=== PATIENT | male | born 1940 | race Caucasian/White ===

== ENCOUNTER 2019-02-03 10:51 | Outpatient (CLI) | payer MEDICARE ==
--- NOTE | 2019-02-03 11:33 | RAD ---
3 views lumbar spine: 02/03/2019 COMPARISON: None HISTORY: Right hip pain, hematuria FINDINGS: Multiple large calcifications within the pelvis noted, consistent with numerous large bladd er stones. These calcifications measure up to at least 6 cm. There are extensive atherosclerotic calcifications of the abdominal aorta and its branches. There is multilevel disc space narrowing, degenerative endplate change, and anterior osteophyte forma tion within the lower thoracic spine and throughout the lumbar spine. There is a vacuum disc present at L3-4. Extensive multilevel lower lumbar spine facet hypertrophic change. No acute osseous abnormality noted. IMPRESSION: Extensive atherosclerotic calcification. Numerous large bladder stones. Multilevel degene rative change within the lumbar spine with no acute osseous abnormality.
--- NOTE | 2019-02-03 11:36 | RAD ---
2 views of the right femur INDICATION: Right leg pain IMPRESSION: No acute fracture or subluxation is evident. There are scattered vascular calcifications within the adjacent soft tissues of the right thigh. 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 There are numerous bladder stones within the central lower pelvis.
== END 2019-02-03 10:52 | disposition home or self-care (01) ==
LOC: BICRAD 10:51
PROVIDERS: ATTEND Internal Medicine
DX: M25.551 Pain in right hip (principal); M25.561 Pain in right knee; M79.604 Pain in right leg; M54.5 Low back pain; M16.11 Unilateral primary osteoarthritis, right hip; M17.11 Unilateral primary osteoarthritis, right knee; M47.816 Spondylosis without myelopathy or radiculopathy, lumbar region; N20.0 Calculus of kidney; I70.0 Atherosclerosis of aorta; N21.0 Calculus in bladder
CPT/HCPCS: 72100

== ENCOUNTER 2019-02-07 14:59 | Emergency (ER) | payer MEDICARE ==
--- NOTE | 2019-02-07 17:05 | ULT ---
Exam: Right lower extremity venous ultrasound with Doppler HISTORY: Pain. TECHNIQUE: Grayscale, color flow, Doppler imaging and spectral waveform analysis performed of the rig ht lower extremity venous system FINDINGS: There is compressibility, presence of flow and augmentation in the common femoral vein, femoral vein and popliteal vein. There is flow and augmentation posterior tibial vein. Flow in the greater saphenous vein and profunda femoral vein IMPRESSION: No evidence of thrombus in the right lower extremity deep venous system
[2019-02-07] MEDS ORDERED: Dexamethasone 4 mg/ml Vial ONE (17:26)
== END 2019-02-07 17:35 | disposition home or self-care (01) ==
LOC: ERS 14:59
DX: M54.41 Lumbago with sciatica, right side (principal); I48.91 Unspecified atrial fibrillation; I10 Essential (primary) hypertension; Z79.891 Long term (current) use of opiate analgesic; Z79.899 Other long term (current) drug therapy
CPT/HCPCS: J1100

== ENCOUNTER 2019-02-11 14:25 | Outpatient (CLI) | payer MEDICARE ==
--- NOTE | 2019-02-11 15:48 | MRI ---
MRI lumbar spine noncontrast: HISTORY: Chronic low back pain, region of the right lower extremity. COMPARISON: None FINDINGS: Appropriate T1 marrow signal intensity of the lumbar vertebra. Vertebral body height is maintained. T here is no fracture. No significant STIR hyperintensity to suggest vertebral body edema or ligamentous injury Appropriate signal intensity of the paraspinal muscles Appropriate signal intensity of the solid organs Conus medullaris terminates at the L1-L2 level T12-L1:Adequate disc hydration. No significant central canal stenosis or neural foraminal narrowing L1-L2:Mild loss of disc space height. Minimal central disc bulge. No significant central canal stenos is. Neural foramina are patent. L2-L3:Adequate disc hydration. Mild ligament flavum thickening and facet hypertrophy. No significant central canal stenosis. Neural foramina are patent. L3-L4:Mild loss of disc space height. Generalized disc bulge, ligament flavum thickening and facet hy pertrophy do not cause any significant central canal stenosis. However, there is mass effect upon the right aspect of the thecal sac with some narrowing of subarticular zone secondary to a 0.5 x 1.0 cm right-sided synovial cyst. At the level of the synovial cyst, there is mild to moderate central canal stenosis There is severe right foraminal narrowing due to disc material. Moderate to severe lef t foraminal narrowing. L4-L5:Adequate disc hydration. Mild ligament flavum thickening and facet hypertrophy. No significant central canal stenosis. Neural foramina are patent. L5-S1:Desiccation with moderate loss of disc space height. Generalized disc bulge without any signifi cant central canal stenosis. Mild posterior ligament hypertrophy. Moderate right and moderate to severe left foraminal narrowing. IMPRESSION: 1. Moderate to severe left and severe right neural foraminal narrowing at L3-L4. 2. Right-sided synovial cyst with narrowing of the right subareolar zone at L4-L5. Associated mild t o moderate central canal stenosis.
== END 2019-02-11 14:26 | disposition home or self-care (01) ==
LOC: SCSMRI 14:25
PROVIDERS: ATTEND Internal Medicine
DX: M51.36 Other intervertebral disc degeneration, lumbar region (principal); M48.061 Spinal stenosis, lumbar region without neurogenic claudication; M71.38 Other bursal cyst, other site
CPT/HCPCS: 72148

== ENCOUNTER 2020-07-26 07:43 | Outpatient (CLI) | payer MEDICARE, OTHER ==
--- NOTE | 2020-07-26 10:36 | RAD ---
EXAM: Chest PA and lateral: HISTORY: Preoperative exam COMPARISON: None FINDINGS: Heart: Enlarged Aorta: Atherosclerotic and slightly elongated Pulmonary vessels: Normal Costophrenic angles: Costophrenic angles are clear. Lungs: Hyperinflated. Chronic changes. No consolidation or mass. Pneumothorax: No pneumothorax Osseous structures: No acute osseous abnormalities. Bone island projects over the right humeral head. IMPRESSION: 1. Cardiomegaly. No evidence of congestive heart failure 2. Atherosclerosis.
[2020-07-26 14:21] LABS: PTT 29.3 sec (22.9-36.1); Prothrombin Time 13.5 sec (12.0-14.7)
[2020-07-26 14:29] LABS: Hemoglobin 16.8 g/dL (14.0-18.0); Mean Corpuscular HGB CONC 34.7 g/dL (32.0-36.0); Mean Platelet Volume 7.9 fL (7.4-10.4); Platelet Count 151 thou/uL (130-400); RBC Distribution Width 13.4 % (11.5-14.5); White Blood Cell (WBC) Count 5.8 thou/uL (4.8-10.8)
[2020-07-26 15:02] LABS: Bacteria/HPF 4+ HPF (None Seen); Bilirubin Negative (Negative); Blood, Urine 2+ (Negative); Calcium Oxalate Crystals 4+ HPF (None Seen); Clarity Extra Turbid (Clear); Glucose, Urine (Dipstick) Normal (Negative); Ketone, Urine Negative (Negative); Leukocyte 500 Leu/uL (Negative); Nitrite Negative (Negative); Protein, Urine (Dipstick) 300 mg/dL (Neg-Trace); RBC/HPF Greater than 50 HPF (0-3); Specific Gravity, Urine 1.024 (1.002-1.036); Squamous Epithelial 0-3 HPF (0-3); Urobilinogen Normal mg/dL (Less than 2); WBC/HPF Greater than 50 HPF (0-3); pH, Urine 7.5 (5.0-9.0)
[2020-07-26 15:20] LABS: Anion Gap 15 mmol/L (10-20); BUN (Urea Nitrogen) 21 mg/dL (8.4-25.7); Calc. Creatinine Clearance 0 mL/min (70-130); Calcium 9.1 mg/dL (7.8-10.44); Carbon Dioxide 25 mmol/L (23-31); Chloride 106 mmol/L (98-107); Estimated GFR-MDRD 69; Glucose 135 mg/dL (83-110); Sodium 142 mmol/L (136-145)
[2020-07-27 11:05] LABS: SARS-CoV-2 MS2 Positive; SARS-CoV-2 N Gene Negative; SARS-CoV-2 S Gene Negative; SARS-CoV-2 by NAA Not Detected (NotDetected); SARS-CoV-2 orf1ab Negative
== END 2020-07-26 07:44 | disposition home or self-care (01) ==
LOC: LABBT 07:43 → SCSRAD 07:44
PROVIDERS: ATTEND Urology
DX: N21.0 Calculus in bladder (principal); I51.7 Cardiomegaly; I70.90 Unspecified atherosclerosis
CPT/HCPCS: 71046; 80048; 81001; 85027; 85610; 85730; 87086; 87635; 93005; 93010; U0003

== ENCOUNTER 2020-07-29 06:46 | Inpatient (IN) | payer MEDICARE ==
[2020-07-28 12:56] VITALS: BMI 36.9
[2020-07-29] MEDS ORDERED: Bupivacaine/Epinephrine 0.25% 30 ML VIAL ONE (06:56)
[2020-07-29] MEDS ORDERED: Gentamicin Sulfate 80 MG in Premix Bag 1 BAG IVPB SCH (07:45)
[2020-07-29] MEDS ORDERED: Midazolam HCl 2 mg/2 ml Vial ONE (08:42)
[2020-07-29] MEDS ORDERED: Fentanyl 100 MCG/2 ML VIAL ONE ×3 (08:42→12:14)
[2020-07-29] MEDS ORDERED: Neomycin-Polymyxin 1 ML AMP ONE (09:45)
[2020-07-29] MEDS ORDERED: EPHEDRINE 25 MG/5 ML SYRINGE ONE (10:36)
[2020-07-29] MEDS ORDERED: PROPOFOL 200 MG/20 ML VIAL ONE (10:36)
[2020-07-29] MEDS ORDERED: PHENYLEPHRINE-NS 100 MCG/ML 10 ML SYRINGE ONE (10:36)
[2020-07-29] MEDS ORDERED: Lidocaine 1% PF 5 ML VIAL ONE (10:36)
[2020-07-29] MEDS ORDERED: Ondansetron PF 4 MG/2 ML Vial ONE (10:36)
[2020-07-29] MEDS ORDERED: Glycopyrrolate 0.2 MG/ML 5 ML SYRINGE ONE (10:36)
[2020-07-29] MEDS ORDERED: Rocuronium Bromide 10 MG/ML (10ML VIAL) ONE (10:36)
[2020-07-29] MEDS ORDERED: Hyoscyamine Sulfate SL 0.125 mg Tablet SL PRN (12:18)
[2020-07-29] MEDS ORDERED: Morphine 2 MG/ML VIAL SLOW IVP PRN (12:18)
[2020-07-29] MEDS ORDERED: Dextrose 50% Abboject 50 ML SYRINGE SLOW IVP PRN (12:18)
[2020-07-29] MEDS ORDERED: diphenhydrAMINE 25 MG CAP PO PRN (12:18)
[2020-07-29] MEDS ORDERED: Bisacodyl 10 MG SUPP PR PRN (12:18)
[2020-07-29] MEDS ORDERED: Dextrose 5% in Water 1,000 ML IV PRN (12:18)
[2020-07-29] MEDS ORDERED: Mag-Al 1200 mg/1200 mg/30 ML UDCUP PO PRN (12:18)
[2020-07-29] MEDS ORDERED: HYDROcodone/Acetaminophen 5/325 mg Tablet PO PRN ×2 (12:18)
[2020-07-29] MEDS ORDERED: hydrALAZINE 20 MG/ML VIAL SLOW IVP PRN (12:18)
[2020-07-29] MEDS ORDERED: Ondansetron PF 4 MG/2 ML Vial IVP PRN (12:18)
[2020-07-29] MEDS ORDERED: Insulin Regular 300 UNITS/3 ML VIAL SC PRN (12:18)
[2020-07-29] MEDS ORDERED: Morphine 4 MG/ML VIAL ONE (14:03)
[2020-07-29] MEDS ORDERED: Morphine 2 MG/ML VIAL ONE (14:47)
[2020-07-29] MEDS ORDERED: ceFAZolin 1 GM/D5W 1 GM in Premix Bag 1 BAG IVPB SCH (16:00)
[2020-07-29] MEDS ORDERED: Gabapentin 300 MG CAP PO SCH ×3 (16:45→21:00)
[2020-07-29] MEDS: ceFAZolin 1 GM/D5W 1 GM in Premix Bag 1 BAG IVPB SCH (18:32)
--- NOTE | 2020-07-29 18:53 | OP ---
DATE OF PROCEDURE: 07/29/2020 SERVICE: Urology. PREOPERATIVE DIAGNOSIS: Bladder calculi. POSTOPERATIVE DIAGNOSIS: Bladder calculi. PROCEDURE PERFORMED: Open cystotomy with extraction of stones. INDICATIONS FOR PROCEDURE: Mr. Rodriguez is an 80-year-old white male with morbid obesity with multiple extremely large bladder calculi, the largest measuring over 4 cm in size. He has approximately 6 to 7 stones within the bladder and I felt it would be best to remove these in an open cystotomy fashion rather than endoscopically due to the volume and size of stones. Risks and benefits were discussed with the patient. He has agreed to proceed forward. DESCRIPTION OF PROCEDURE: After identification of armband and verification of consent, the patient was brought back to the operating room where he underwent general anesthesia with an endotracheal intubation. He was then left in the supine position and prepped and draped in the usual sterile fashion. After appropriate time-out, a lubricated 18-Austrian Costello catheter was introduced per urethra into the bladder. A 10 mL of sterile water was placed into the balloon. An incision was made from the inferior aspect of his existing midline incision to just over the pubic symphysis. Dissection was carried down through the subcutaneous fat using Bovie electrocautery. There was a significant amount of fat as the patient is morbidly obese. The fascia was divided and the preperitoneal fat and prevesical fat were identified. There was another fascia likely his internal oblique fascia, which was due to a significant amount of fat below the external fascia. This was then divided until the rectus muscles could be fully exposed and identified as well as the pyramidalis muscles. At this point, the surface of the bladder could be identified. The bladder was filled in a retrograde fashion via the Costello catheter until approximately 200 mL was in the bladder. A 2 stay sutures with 2-0 Vicryl placed on the anterior surface of the bladder and an incision was made between these 2 stay sutures with Bovie electrocautery until we were through the detrusor and mucosa. There was immediate release of saline and urine from the cystotomy. The cystotomy incision was extended until it was wide enough to look inside the bladder and manually extracted stones using ring forceps. A total of 6 stones were removed from the bladder, all extremely large in size. These were sent off for routine pathologic evaluation. Manual inspection in the bladder both with the digital palpation and under direct vision did not demonstrate any additional stones. The prostate could be palpated and did appear to be enlarged with a median lobe. The Costello was in good position. The bladder was irrigated out with antibiotic irrigation along with the perivesical space and subcutaneous tissues. An SP tube was brought in through a separate puncture site lateral to the incision, going through the fascia and then brought into the space and placed through the incision into the bladder. The incision was closed in 2 layers using a 3-0 chromic for the mucosa and a 2-0 Vicryl for the detrusor and perivesical fat, leaving a very small space around the catheter. A pursestring suture was placed around the catheter and sutured down to help with closure once the SP tube was removed. Irrigation was performed through the SP tube, which came out with a slight blood-tinged urine from the Costello catheter, indicating good positioning. A CHRISTY drain was brought in through a separate puncture site on the right lateral aspect of the abdomen contralateral to the SP tube and positioned in the paravesical space. The fascia was closed around the portion of the CHRISTY drain, that a portion of the CHRISTY was below the fascia and a portion was above the fascia since there was a significant amount of fat between the skin and the fascia. The fascia was closed using a #1 PDS in a running fashion until closed completely. Once this was completely closed, the subcutaneous tissues were irrigated thoroughly with antibiotic irrigation and then the drain positioned in place with Mac applied all over the subcutaneous tissues. The Adrien's fat was then closed together using interrupted 2-0 Vicryl and the skin closed with tiny. Dressings were applied on the incision along with drain sponges, a 3-0 nylon was used to secure both the SP tube and the CHRISTY drain. The suprapubic catheter and Costello catheter were hooked up to gravity bags and the CHRISTY hooked up to bulb suction. The patient was then awakened, taken to PACU for recovery in stable condition. COMPLICATIONS: None. ESTIMATED BLOOD LOSS: Approximately 75 mL. RETAINED TUBES AND DRAINS: A 20-Austrian suprapubic catheter, 18-Austrian Costello catheter, and #19 CHRISTY drain. SPECIMENS: Stone for stone analysis from the bladder. DISPOSITION: The patient will be admitted to the hospital for postoperative recovery. Once he is found to be stable, we will discharge him home with plans to remove the CHRISTY drain in approximately 1 week and the suprapubic tube in approximately 2 weeks. Job ID: [id number]
[2020-07-29] MEDS: Docusate 100 MG CAP PO SCH (19:48)
[2020-07-29] MEDS: Famotidine/PF 20 mg/2ml Vial SLOW IVP SCH (19:49)
[2020-07-29] MEDS ORDERED: Oxybutynin ER 5 MG TAB PO SCH (21:00)
[2020-07-29] MEDS ORDERED: Losartan 25 MG TAB PO SCH (21:00)
[2020-07-29] MEDS ORDERED: Tamsulosin HCl 0.4 MG CAP PO SCH (21:00)
[2020-07-30] MEDS: ceFAZolin 1 GM/D5W 1 GM in Premix Bag 1 BAG IVPB SCH ×2 (02:30→10:29)
[2020-07-30 05:17] LABS: #Eosinphils 0.1 thou/uL (0.0-0.7); #Lymphocytes 1.2 thou/uL (1.20-3.40); #Monocytes 1.2 thou/uL (0.11-0.59); #Neutrophils 9.4 thou/uL (1.40-6.50); %Basophils 0.3 % (0.0-1.0); %Eosinophils 0.6 % (0.0-10.0); %Lymphocytes 10.2 % (21.0-51.0); %Monocytes 10.4 % (0.0-10.0); %Neutrophils 78.5 % (42.0-75.0); Hemoglobin 14.8 g/dL (14.0-18.0); Mean Corpuscular HGB CONC 35.3 g/dL (32.0-36.0); Mean Corpuscular Hemoglobin 35.4 pg (27.0-31.0); Mean Platelet Volume 7.8 fL (7.4-10.4); Platelet Count 142 thou/uL (130-400); RBC Distribution Width 13.2 % (11.5-14.5); White Blood Cell (WBC) Count 11.9 thou/uL (4.8-10.8)
[2020-07-30 05:36] LABS: Anion Gap 10 mmol/L (10-20); BUN (Urea Nitrogen) 19 mg/dL (8.4-25.7); Calc. Creatinine Clearance 93 mL/min (70-130); Carbon Dioxide 25 mmol/L (23-31); Chloride 104 mmol/L (98-107); Estimated GFR-MDRD 73; Glucose 158 mg/dL (83-110); Sodium 135 mmol/L (136-145)
[2020-07-30] MEDS ORDERED: Hydrochlorothiazide 25 MG TAB PO SCH (09:00)
[2020-07-30] MEDS ORDERED: Gabapentin 300 MG CAP PO SCH (09:00)
[2020-07-30] MEDS ORDERED: Finasteride 5 MG TAB PO SCH (09:00)
[2020-07-30] MEDS: Docusate 100 MG CAP PO SCH (09:08)
[2020-07-30] MEDS: Famotidine/PF 20 mg/2ml Vial SLOW IVP SCH (09:08)
[2020-07-30 14:21] VITALS: BP 98/60; TEMP 99.1
--- NOTE | 2020-07-30 14:28 | PRG ---
DATE OF SERVICE: 07/30/2020 SUBJECTIVE: The patient states his pain has been relatively minimal. He states he is doing very well. He is tolerating a regular diet. He has gotten up out of bed. His catheter has been draining relatively well. He is not complaining of any significant bladder spasms. OBJECTIVE: VITAL SIGNS: Temperature 99.2, pulse 64, respirations 16, blood pressure 115/83, and saturation 94% on room air. GENERAL: No apparent distress. Communicative. Alert. CARDIOVASCULAR: Regular rate and rhythm. ABDOMEN: Soft, nontender, nondistended. Incision is clean, dry, and intact, currently dressed. CHRISTY drain is serosanguineous. Costello catheter has orange-colored urine, which is completely clear without any blood clots. EXTREMITIES: Trace edema bilaterally. LABORATORY EVALUATION: A full set of labs are in the [facility] which I have reviewed. Of note, the patient's white count is 11.9, hemoglobin of 14.8. Creatinine of 0.98. ASSESSMENT AND PLAN: An 80-year-old white male with multiple bladder stones, status post open cystotomy and stone extraction. Postop day #1, he seems to be recovering quite well. I think he is stable enough for discharge. His labs look good. His Costello catheter can be removed, but given the larger amount of output from his CHRISTY drain as well as infected urine, I would recommend a CHRISTY drain stay in for about 1 week; at which point, we will evaluate, removal on Sunday at the time of his followup. I will have them keep a CHRISTY diary to make sure that the output is not significant. Otherwise, we will leave the drain in longer. The SP tube will stay in for gravity drainage. I have gone over instructions with the patient care for this. I went overall his discharge instructions and activity limitations. I will plan to see him in August. The patient can remain on his oxybutynin and he should continue his antibiotics. Remainder of his home medications should remain on as well. Job ID: [id number]
--- NOTE | 2020-07-30 17:16 | DIS ---
DATE OF ADMISSION: 07/29/2020 DATE OF DISCHARGE: 07/30/2020 ADMITTING DIAGNOSES: Bladder stones and benign prostatic hypertrophy. DISCHARGE DIAGNOSES: Bladder stones and benign prostatic hypertrophy. PROCEDURE PERFORMED: While inpatient is open cystotomy with stone extraction. BRIEF HISTORY: Mr. Rodriguez is an 80-year-old white male with morbid obesity who had bladder stones with BPH. The bladder stones were too numerous and large to deal with endoscopically, so we had made arrangements for open cystotomy and stone extraction. All the risks and benefits were discussed and he has agreed to proceed forward. The full H and P can be found in the scanned portion of the [employer] system. HOSPITAL COURSE: After surgery (please see operative note for details), the patient was kept in the hospital overnight for postoperative recovery. He had a Costello catheter and SP tube as well as a CHRISTY drain. The CHRISTY drain put out 70 mL overnight. His Costello catheter was clear in the morning. His labs looked good. His pain was well controlled. He was on a regular diet, was able to get up out of bed. We removed his Costello catheter and the patient was able to be discharged home without event. DISPOSITION: Discharged to home. DISCHARGE CONDITION: Good. DISCHARGE EQUIPMENT: Will be CHRISTY drain to bulb suction and the SP tube for gravity drainage. DISCHARGE INSTRUCTIONS: Were explained to the patient to which he expressed understanding. Follow up will be on August 04 at 10:15 with me. Job ID: [id number]
== END 2020-07-30 15:46 | disposition home or self-care (01) | DRG 664 ==
LOC: SDC 06:46 → SURG A 15:50
PROVIDERS: ADMIT Urology; ATTEND Urology
PROC: 0TCB0ZZ Extirpation of Matter from Bladder, Open Approach (ICD-10-PCS; principal; 2020-07-29)
PROC: 0T9B00Z Drainage of Bladder with Drainage Device, Open Approach (ICD-10-PCS; 2020-07-29)
DX: N21.0 Calculus in bladder (principal); I48.91 Unspecified atrial fibrillation; I12.9 Hypertensive chronic kidney disease with stage 1 through stage 4 chronic kidney disease, or unspecified chronic kidney disease; N40.1 Benign prostatic hyperplasia with lower urinary tract symptoms; K76.0 Fatty (change of) liver, not elsewhere classified; N18.30 Chronic kidney disease, stage 3 unspecified; E78.5 Hyperlipidemia, unspecified; E11.22 Type 2 diabetes mellitus with diabetic chronic kidney disease; E80.4 Gilbert syndrome; M51.36 Other intervertebral disc degeneration, lumbar region; R39.15 Urgency of urination; M19.90 Unspecified osteoarthritis, unspecified site; N31.8 Other neuromuscular dysfunction of bladder; I70.90 Unspecified atherosclerosis; Z79.899 Other long term (current) drug therapy; Z79.82 Long term (current) use of aspirin; Z68.36 Body mass index [BMI] 36.0-36.9, adult; Z90.49 Acquired absence of other specified parts of digestive tract
CPT/HCPCS: 36415; 36416; 71046; 80048; 81001; 82365; 85025; 85027; 85610; 85730; 87086; 87635; 88300; 93005; J0690; J1580; J1956; J2250; J2270; J2405; J2704; J3010; S0028; U0003

== ENCOUNTER 2020-08-18 08:22 | Outpatient (CLI) | payer MEDICARE ==
--- NOTE | 2020-08-18 11:38 | RAD ---
Voiding cystourethrogram HISTORY: Bladder leak. Recent stone removal. FINDINGS: After explaining the procedure and answering all questions, Cysto-Conray contrast was caref ully infused into the urinary bladder via the indwelling suprapubic catheter. Bladder was initially decompressed. At approximately 150 cc distention of the bladder, contrast was seen to exit the bladder along side t he suprapubic catheter. It did not spill away from the catheter tract. A very thin wisp of contrast also extended inferiorly from the anterior bladder wall, immediately inf erior to the catheter insertion site. It gradually increased, but remained small volume, tracking towards the lower anterior abdominal wall, towards the inferior margin of the vertical skin incision, although the contrast was never seen to extend to the skin surface. Contrast was seen into the posterior urethra, although patient was never able to void under fluorosco pic evaluation. Patient was allowed to void in the restroom, after which minimal contrast remained within the urinary bladder. Patient tolerated the procedure well and was dismissed in good condition. IMPRESSION : Small leak from the lower anterior urinary bladder wall, immediately inferior to the suprapubic elvira ter insertion site. Leaked contrast extended towards the inferior margin of the skin staple row. Small amount of contrast leaked also seen around the deep portion of the suprapubic catheter. Very small post void urinary bladder residual.
== END 2020-08-18 08:23 | disposition home or self-care (01) ==
LOC: RAD 08:22
PROVIDERS: ATTEND Urology
DX: N21.0 Calculus in bladder (principal); N39.43 Post-void dribbling
CPT/HCPCS: 51600; 74455

== ENCOUNTER 2020-08-31 08:21 | Outpatient (CLI) | payer MEDICARE ==
[2020-08-31] MEDS ORDERED: Iopamidol-370 76% 500 ML 1 ML ONE (10:38)
--- NOTE | 2020-08-31 11:59 | RAD ---
Exam: Cystourethrogram HISTORY: Bladder calculus COMPARISON: 08/18/2020 Exposure: 2.1 minutes, 93.6 leiva per centimeter square FINDINGS: Playground Attendant image demonstrates nonspecific bowel gas pattern chronic changes of the osseous structures PA and lateral and superior catheter, Cysto-Conray was administered into a retrograde fashion. A tota l of 200 cc was used to distend the bladder. There is no evidence of leak or extravasation. Note, multiple bladder diverticula are identified. There appears be a large anterior bladder diverticulum. Post procedure image demonstrates is residual contrast in the bladder. No evidence of leak or extravasation while filling the bladder or on the post procedure image. IMPRESSION: No leak or extravasation.
== END 2020-08-31 08:22 | disposition home or self-care (01) ==
LOC: RAD 08:21
PROVIDERS: ATTEND Urology
DX: N21.0 Calculus in bladder (principal)
CPT/HCPCS: 51600; 74455

== ENCOUNTER 2021-11-01 12:00 | Inpatient (IN) | payer MEDICARE ==
[2021-11-01 13:08] LABS: #Eosinphils 0.3 thou/uL (0.0-0.7); #Lymphocytes 1.3 thou/uL (1.20-3.40); #Monocytes 0.5 thou/uL (0.11-0.59); #Neutrophils 4.1 thou/uL (1.40-6.50); %Basophils 0.4 % (0.0-1.0); %Eosinophils 5.4 % (0.0-10.0); %Lymphocytes 20.4 % (21.0-51.0); %Monocytes 8.3 % (0.0-10.0); %Neutrophils 65.4 % (42.0-75.0); Hemoglobin 16.2 g/dL (14.0-18.0); Mean Corpuscular HGB CONC 34.6 g/dL (32.0-36.0); Mean Corpuscular Hemoglobin 34.1 pg (27.0-31.0); Mean Corpuscular Volume 98.7 fL (78.0-98.0); Mean Platelet Volume 7.8 fL (7.4-10.4); Platelet Count 128 thou/uL (130-400); RBC Distribution Width 12.3 % (11.5-14.5); Red Blood Cell (RBC) Count 4.74 mill/uL (4.70-6.10); White Blood Cell (WBC) Count 6.2 thou/uL (4.8-10.8)
[2021-11-01] MEDS ORDERED: Nitroglycerin 2% Ointment 1 INCH/1 GM Packet ONE (13:19)
[2021-11-01] MEDS ORDERED: Nitroglycerin 0.4 MG TAB 1 EACH ONE ×2 (13:19→13:21)
[2021-11-01] MEDS ORDERED: hydrALAZINE 20 MG/ML VIAL ONE (13:21)
[2021-11-01 13:39] LABS: ALT (SGPT) 18 U/L (8-55); AST (SGOT) 17 U/L (5-34); Albumin 4.1 g/dL (3.4-4.8); Alkaline Phosphatase 84 U/L (40-110); Anion Gap 11 mmol/L (10-20); BUN (Urea Nitrogen) 23 mg/dL (8.4-25.7); Bilirubin, Total 2.3 mg/dL (0.2-1.2); Calc. Creatinine Clearance 0 mL/min (70-130); Calcium 9.7 mg/dL (7.8-10.44); Carbon Dioxide 31 mmol/L (23-31); Chloride 100 mmol/L (98-107); Globulin 3.7 g/dL (2.4-3.5); Glucose 150 mg/dL (83-110); Potassium 3.5 mmol/L (3.5-5.1); Protein, Total 7.8 g/dL (5.8-8.1); Sodium 138 mmol/L (136-145)
[2021-11-01] MEDS ORDERED: Ondansetron ODT 4 MG TAB PO PRN (16:04)
[2021-11-01] MEDS ORDERED: Acetaminophen 325 MG TAB PO PRN (16:04)
[2021-11-01] MEDS ORDERED: Nitroglycerin 0.4 MG TAB (25 Tab Bottle) SL PRN (16:05)
[2021-11-01] MEDS ORDERED: Electrolyte Replacement Protocol 1 EACH FS PRN (16:15)
[2021-11-01 17:08] LABS: Hemoglobin A1c 5.4 % (4.0-6.0)
[2021-11-01] MEDS ORDERED: Morphine 4 MG/ML VIAL SLOW IVP PRN (17:30)
[2021-11-01] MEDS ORDERED: Communication Order-Pharmacy FS SCH (18:30)
[2021-11-01 20:02] VITALS: BMI 40.6
[2021-11-01 20:03] LABS: Troponin I 0.026 ng/mL (< 0.028)
[2021-11-01] MEDS: Tamsulosin HCl 0.4 MG CAP PO SCH (21:09)
[2021-11-01] MEDS: Nitroglycerin 2% Ointment 1 INCH/1 GM Packet TOP SCH (23:41)
[2021-11-02 00:34] LABS: SARS-CoV-2 NAA Rapid Test Not Detected (NotDetected)
[2021-11-02 05:27] LABS: Cardiac Risk 3.1 (Less than 4.5)
[2021-11-02] MEDS: Nitroglycerin 2% Ointment 1 INCH/1 GM Packet TOP SCH ×3 (05:37→20:26)
[2021-11-02] MEDS: Finasteride 5 MG TAB PO SCH (05:59)
[2021-11-02] MEDS ORDERED: BIVALIRUDIN FS SCH (07:00)
[2021-11-02] MEDS ORDERED: SODIUM CHLORIDE 0.9% FS SCH (07:00)
[2021-11-02] MEDS ORDERED: Aspirin 325 mg Enteric Coated Tablet PO SCH (09:00)
[2021-11-02] MEDS ORDERED: Bivalirudin 250 MG VIAL ONE (11:10)
[2021-11-02] MEDS ORDERED: Iopamidol 370 76% 50 ML VIAL FS ONE (11:34)
[2021-11-02] MEDS ORDERED: Iopamidol 370 76% 100 ML VIAL ONE (11:34)
[2021-11-02] MEDS ORDERED: Fentanyl 100 MCG/2 ML VIAL ONE (12:12)
[2021-11-02] MEDS ORDERED: Midazolam HCl 2 mg/2 ml Vial ONE ×2 (12:12→12:25)
[2021-11-02] MEDS ORDERED: Gabapentin 300 MG CAP PO SCH (13:00)
[2021-11-02] MEDS ORDERED: Acetaminophen/Codeine 30-300mg Tablet PO PRN ×2 (15:19)
[2021-11-02] MEDS ORDERED: Sodium Chloride 0.9% 200 ML IV PRN (15:19)
[2021-11-02] MEDS ORDERED: Nitroglycerin 0.4 MG TAB (25 Tab Bottle) SL PRN (15:19)
[2021-11-02] MEDS: Tamsulosin HCl 0.4 MG CAP PO SCH (20:25)
[2021-11-02] MEDS: Atorvastatin Calcium 40 MG TAB PO SCH (20:26)
[2021-11-02] MEDS: Amlodipine 5 MG TAB PO SCH (20:26)
[2021-11-02] MEDS: Hydrochlorothiazide 25 MG TAB PO SCH (20:26)
[2021-11-02] MEDS: Gabapentin 300 MG CAP PO SCH (20:26)
[2021-11-03] MEDS: Nitroglycerin 2% Ointment 1 INCH/1 GM Packet TOP SCH ×3 (06:07→21:19)
[2021-11-03] MEDS: Gabapentin 300 MG CAP PO SCH ×3 (06:11→20:57)
[2021-11-03 09:25] LABS: #Eosinphils 0.4 thou/uL (0.0-0.7); #Lymphocytes 1.5 thou/uL (1.20-3.40); #Monocytes 0.7 thou/uL (0.11-0.59); #Neutrophils 3.9 thou/uL (1.40-6.50); %Basophils 0.3 % (0.0-1.0); %Eosinophils 5.7 % (0.0-10.0); %Lymphocytes 23.7 % (21.0-51.0); %Monocytes 10.5 % (0.0-10.0); %Neutrophils 59.8 % (42.0-75.0); Hemoglobin 15.2 g/dL (14.0-18.0); Mean Corpuscular HGB CONC 34.6 g/dL (32.0-36.0); Mean Corpuscular Hemoglobin 34.2 pg (27.0-31.0); Mean Platelet Volume 7.7 fL (7.4-10.4); Platelet Count 134 thou/uL (130-400); RBC Distribution Width 12.3 % (11.5-14.5); Red Blood Cell (RBC) Count 4.44 mill/uL (4.70-6.10); White Blood Cell (WBC) Count 6.4 thou/uL (4.8-10.8)
[2021-11-03 09:47] LABS: Anion Gap 11 mmol/L (10-20); BUN (Urea Nitrogen) 20 mg/dL (8.4-25.7); Calc. Creatinine Clearance 127 mL/min (70-130); Calcium 8.9 mg/dL (7.8-10.44); Carbon Dioxide 25 mmol/L (23-31); Chloride 104 mmol/L (98-107); Glucose 119 mg/dL (83-110); Potassium 3.2 mmol/L (3.5-5.1); Sodium 137 mmol/L (136-145)
[2021-11-03] MEDS: Finasteride 5 MG TAB PO SCH (10:59)
[2021-11-03] MEDS: Aspirin 81 mg Enteric Coated Tablet PO SCH (10:59)
[2021-11-03] MEDS ORDERED: Potassium Chloride 20 MEQ TAB PO SCH (11:00)
[2021-11-03] MEDS: Tamsulosin HCl 0.4 MG CAP PO SCH (20:50)
[2021-11-03] MEDS: Atorvastatin Calcium 40 MG TAB PO SCH (20:50)
[2021-11-03] MEDS: Amlodipine 5 MG TAB PO SCH (20:51)
[2021-11-03] MEDS: Hydrochlorothiazide 25 MG TAB PO SCH (20:52)
[2021-11-04 04:55] LABS: #Eosinphils 0.4 thou/uL (0.0-0.7); #Lymphocytes 1.4 thou/uL (1.20-3.40); #Monocytes 0.7 thou/uL (0.11-0.59); #Neutrophils 3.6 thou/uL (1.40-6.50); %Basophils 0.6 % (0.0-1.0); %Eosinophils 5.9 % (0.0-10.0); %Lymphocytes 23.2 % (21.0-51.0); %Monocytes 11.9 % (0.0-10.0); %Neutrophils 58.4 % (42.0-75.0); Hemoglobin 14.5 g/dL (14.0-18.0); Mean Corpuscular HGB CONC 34.7 g/dL (32.0-36.0); Mean Corpuscular Hemoglobin 34.8 pg (27.0-31.0); Platelet Count 126 thou/uL (130-400); RBC Distribution Width 12.3 % (11.5-14.5); Red Blood Cell (RBC) Count 4.16 mill/uL (4.70-6.10); White Blood Cell (WBC) Count 6.2 thou/uL (4.8-10.8)
[2021-11-04 05:12] LABS: Anion Gap 12 mmol/L (10-20); BUN (Urea Nitrogen) 24 mg/dL (8.4-25.7); Calc. Creatinine Clearance 122 mL/min (70-130); Calcium 8.7 mg/dL (7.8-10.44); Carbon Dioxide 22 mmol/L (23-31); Chloride 106 mmol/L (98-107); Glucose 200 mg/dL (83-110); Potassium 3.8 mmol/L (3.5-5.1); Sodium 136 mmol/L (136-145)
[2021-11-04] MEDS: Nitroglycerin 2% Ointment 1 INCH/1 GM Packet TOP SCH ×3 (05:49→22:18)
[2021-11-04] MEDS: Gabapentin 300 MG CAP PO SCH ×3 (05:49→20:14)
[2021-11-04] MEDS: Finasteride 5 MG TAB PO SCH (09:21)
[2021-11-04] MEDS: Aspirin 81 mg Enteric Coated Tablet PO SCH (09:22)
[2021-11-04] MEDS ORDERED: HumaLOG 300 UNITS/3 ML VIAL SC PRN (15:18)
[2021-11-04] MEDS ORDERED: Dextrose 50% Abboject 50 ML SYRINGE SLOW IVP PRN (15:18)
[2021-11-04] MEDS ORDERED: Dextrose 5% in Water 1,000 ML IV PRN (15:18)
[2021-11-04 19:42] VITALS: BP 126/61; TEMP 98
[2021-11-04] MEDS: Hydrochlorothiazide 25 MG TAB PO SCH (20:13)
[2021-11-04] MEDS: Atorvastatin Calcium 40 MG TAB PO SCH (20:14)
[2021-11-04] MEDS: Tamsulosin HCl 0.4 MG CAP PO SCH (20:14)
[2021-11-04] MEDS: Amlodipine 5 MG TAB PO SCH (20:14)
[2021-11-04] MEDS ORDERED: Magnesium Oxide 250 MG TAB PO SCH (21:00)
[2021-11-04] MEDS ORDERED: Losartan 25 MG TAB PO SCH (21:00)
== END 2021-11-04 23:10 | disposition short-term general hospital (02) | DRG 287 ==
LOC: ERS 12:00 → 2NO 15:06 → OBSVTOIN 11-02 17:00
PROVIDERS: ADMIT Internal Medicine; ATTEND Hospitalist
PROC: 4A023N7 Measurement of Cardiac Sampling and Pressure, Left Heart, Percutaneous Approach (ICD-10-PCS; principal; 2021-11-02)
PROC: B2111ZZ Fluoroscopy of Multiple Coronary Arteries using Low Osmolar Contrast (ICD-10-PCS; 2021-11-02)
DX: I25.110 Atherosclerotic heart disease of native coronary artery with unstable angina pectoris (principal); I48.20 Chronic atrial fibrillation, unspecified; Z68.41 Body mass index [BMI] 40.0-44.9, adult; E78.5 Hyperlipidemia, unspecified; N18.30 Chronic kidney disease, stage 3 unspecified; I12.9 Hypertensive chronic kidney disease with stage 1 through stage 4 chronic kidney disease, or unspecified chronic kidney disease; Z20.822 Contact with and (suspected) exposure to COVID-19; R33.8 Other retention of urine; R00.1 Bradycardia, unspecified; E66.01 Morbid (severe) obesity due to excess calories; N40.1 Benign prostatic hyperplasia with lower urinary tract symptoms; E11.22 Type 2 diabetes mellitus with diabetic chronic kidney disease; Z79.01 Long term (current) use of anticoagulants; Z88.8 Allergy status to other drugs, medicaments and biological substances; Z79.899 Other long term (current) drug therapy; Z90.49 Acquired absence of other specified parts of digestive tract; Z98.890 Other specified postprocedural states
CPT/HCPCS: 36415; 36416; 71045; 80048; 80053; 80061; 83036; 83735; 83880; 84443; 84484; 85025; 93005; 93306; 93458; 96374; 99152; 99153; G0378; J0360; J0583; J1815; J2250; J3010; Q9967; U0002

== ENCOUNTER 2022-02-03 15:28 | Inpatient (IN) | payer MEDICARE ==
[2022-02-03 16:44] LABS: #Eosinphils 0.1 thou/uL (0.0-0.7); #Lymphocytes 1.9 thou/uL (1.20-3.40); #Monocytes 0.6 thou/uL (0.11-0.59); #Neutrophils 11.8 thou/uL (1.40-6.50); %Eosinophils 0.5 % (0.0-10.0); %Lymphocytes 12.9 % (21.0-51.0); %Neutrophils 82.6 % (42.0-75.0); Hemoglobin 14.6 g/dL (14.0-18.0); Mean Corpuscular HGB CONC 32.1 g/dL (32.0-36.0); Mean Corpuscular Hemoglobin 31.4 pg (27.0-31.0); Mean Corpuscular Volume 97.8 fL (78.0-98.0); Mean Platelet Volume 7.2 fL (7.4-10.4); Platelet Count 159 thou/uL (130-400); RBC Distribution Width 14.9 % (11.5-14.5); Red Blood Cell (RBC) Count 4.65 mill/uL (4.70-6.10); White Blood Cell (WBC) Count 14.3 thou/uL (4.8-10.8)
[2022-02-03 17:14] LABS: ALT (SGPT) 26 U/L (8-55); AST (SGOT) 32 U/L (5-34); Albumin 3.7 g/dL (3.4-4.8); Alkaline Phosphatase 123 U/L (40-110); Anion Gap 15 mmol/L (10-20); BUN (Urea Nitrogen) 13 mg/dL (8.4-25.7); Bilirubin, Total 2.3 mg/dL (0.2-1.2); Calc. Creatinine Clearance 0 mL/min (70-130); Calcium 9.2 mg/dL (7.8-10.44); Carbon Dioxide 25 mmol/L (23-31); Chloride 102 mmol/L (98-107); Globulin 3.8 g/dL (2.4-3.5); Glucose 147 mg/dL (83-110); Potassium 3.9 mmol/L (3.5-5.1); Protein, Total 7.5 g/dL (5.8-8.1); Sodium 138 mmol/L (136-145)
[2022-02-03] MEDS ORDERED: Ibuprofen 800 MG TAB ONE (17:30)
[2022-02-03 17:32] LABS: Bilirubin Negative (Negative); Blood, Urine Trace (Negative); Clarity Clear (Clear); Glucose, Urine (Dipstick) Normal (Negative); Ketone, Urine Negative (Negative); Leukocyte Negative Leu/uL (Negative); Nitrite Negative (Negative); Protein, Urine (Dipstick) Negative (Neg-Trace); Specific Gravity, Urine 1.009 (1.002-1.036); Squamous Epithelial None Seen HPF (0-3); Urobilinogen Normal mg/dL (Less than 2); pH, Urine 7.5 (5.0-9.0)
[2022-02-03 17:33] LABS: Bacteria/HPF Rare-Few HPF (None Seen)
[2022-02-03 18:48] LABS: SARS-CoV-2 NAA Rapid Test Not Detected (NotDetected)
[2022-02-03] MEDS ORDERED: Cefepime 1 GM VIAL ONE (21:22)
[2022-02-03] MEDS ORDERED: Vancomycin 1 GM/200 ML BAG ONE (21:39)
[2022-02-03] MEDS ORDERED: Ondansetron PF 4 MG/2 ML Vial IVP PRN (22:04)
[2022-02-03] MEDS ORDERED: Acetaminophen 325 MG TAB PO PRN (22:04)
[2022-02-03] MEDS ORDERED: Dextrose 5% in Water 1,000 ML IV PRN (22:14)
[2022-02-03] MEDS ORDERED: Dextrose 50% Abboject 50 ML SYRINGE SLOW IVP PRN (22:14)
[2022-02-03] MEDS ORDERED: HumaLOG 300 UNITS/3 ML VIAL SC PRN ×2 (22:14)
[2022-02-04] MEDS: Vancomycin HCl 1.75 GM in Sodium Chloride 0.9% 500 ML IVPB SCH ×2 (04:33→16:32)
[2022-02-04 07:03] LABS: #Eosinphils 0.2 thou/uL (0.0-0.7); #Lymphocytes 1.9 thou/uL (1.20-3.40); #Monocytes 0.8 thou/uL (0.11-0.59); #Neutrophils 7.1 thou/uL (1.40-6.50); %Basophils 0.1 % (0.0-1.0); %Eosinophils 2.2 % (0.0-10.0); %Lymphocytes 19.3 % (21.0-51.0); %Monocytes 7.6 % (0.0-10.0); %Neutrophils 70.8 % (42.0-75.0); Hemoglobin 12.2 g/dL (14.0-18.0); Mean Corpuscular HGB CONC 33.6 g/dL (32.0-36.0); Mean Corpuscular Hemoglobin 32.7 pg (27.0-31.0); Mean Corpuscular Volume 97.2 fL (78.0-98.0); Mean Platelet Volume 7.5 fL (7.4-10.4); Platelet Count 146 thou/uL (130-400); RBC Distribution Width 14.9 % (11.5-14.5); Red Blood Cell (RBC) Count 3.75 mill/uL (4.70-6.10)
[2022-02-04 07:13] LABS: Anion Gap 11 mmol/L (10-20); BUN (Urea Nitrogen) 15 mg/dL (8.4-25.7); Calc. Creatinine Clearance 115 mL/min (70-130); Calcium 8.3 mg/dL (7.8-10.44); Carbon Dioxide 28 mmol/L (23-31); Chloride 103 mmol/L (98-107); Glucose 134 mg/dL (83-110); Potassium 3.2 mmol/L (3.5-5.1); Sodium 139 mmol/L (136-145)
[2022-02-04] MEDS: Furosemide 40 MG TAB PO SCH (08:10)
[2022-02-04] MEDS: Enoxaparin Sodium 40 MG/0.4 ML SYRINGE SC SCH (08:10)
[2022-02-04] MEDS: Gabapentin 300 MG CAP PO SCH ×2 (08:10→20:38)
[2022-02-04] MEDS ORDERED: Aspirin 81 mg Enteric Coated Tablet PO SCH (09:00)
[2022-02-04] MEDS: Docusate 100 MG CAP PO PRN (10:37)
[2022-02-04] MEDS: Polyethylene Glycol 3350 17 GM Packet PO PRN (10:37)
[2022-02-04] MEDS ORDERED: traMADol HCl 50 MG TAB PO PRN (11:15)
[2022-02-04] MEDS: Aspirin 81 mg Enteric Coated Tablet PO SCH (20:36)
[2022-02-04] MEDS: Tamsulosin HCl 0.4 MG CAP PO SCH (20:38)
[2022-02-04] MEDS: Losartan 25 MG TAB PO SCH (20:38)
[2022-02-04] MEDS: Atorvastatin Calcium 40 MG TAB PO SCH (20:38)
[2022-02-04] MEDS: Metoprolol Tartrate 25 MG TAB PO SCH (20:38)
[2022-02-05] MEDS: Vancomycin HCl 1.75 GM in Sodium Chloride 0.9% 500 ML IVPB SCH ×2 (04:04→16:38)
[2022-02-05] MEDS: Enoxaparin Sodium 40 MG/0.4 ML SYRINGE SC SCH (08:06)
[2022-02-05] MEDS: Gabapentin 300 MG CAP PO SCH ×2 (08:06→20:29)
[2022-02-05] MEDS: Furosemide 40 MG TAB PO SCH (08:07)
[2022-02-05] MEDS: Metoprolol Tartrate 25 MG TAB PO SCH ×2 (08:07→20:28)
[2022-02-05] MEDS: Finasteride 5 MG TAB PO SCH (08:09)
[2022-02-05 10:57] LABS: Hemoglobin 12.3 g/dL (14.0-18.0); Mean Corpuscular HGB CONC 33.1 g/dL (32.0-36.0); Mean Corpuscular Hemoglobin 32.3 pg (27.0-31.0); Mean Corpuscular Volume 97.7 fL (78.0-98.0); Mean Platelet Volume 7.2 fL (7.4-10.4); Platelet Count 138 thou/uL (130-400); RBC Distribution Width 14.6 % (11.5-14.5); Red Blood Cell (RBC) Count 3.79 mill/uL (4.70-6.10); White Blood Cell (WBC) Count 7.1 thou/uL (4.8-10.8)
[2022-02-05 11:17] LABS: Anion Gap 11 mmol/L (10-20); BUN (Urea Nitrogen) 11 mg/dL (8.4-25.7); Calc. Creatinine Clearance 134 mL/min (70-130); Calcium 8.2 mg/dL (7.8-10.44); Carbon Dioxide 24 mmol/L (23-31); Chloride 107 mmol/L (98-107); Glucose 133 mg/dL (83-110); Potassium 3.4 mmol/L (3.5-5.1); Sodium 139 mmol/L (136-145)
[2022-02-05] MEDS ORDERED: Melatonin 3 MG TAB PO PRN (11:31)
[2022-02-05] MEDS: Cefepime 2 GM in Sodium Chloride 0.9% 100 ML IVPB SCH ×2 (12:29→23:57)
[2022-02-05] MEDS ORDERED: Potassium Chloride 20 MEQ TAB PO SCH (12:45)
[2022-02-05 16:18] LABS: Vancomycin, Trough 22.8 ug/mL
[2022-02-05] MEDS ORDERED: VANCOMYCIN 1.25 GM/250 ML BAG 1.25 GM in Premix Bag 1 BAG IVPB SCH (17:00)
[2022-02-05] MEDS ORDERED: Vancomycin 1.5 GRAM/300 ML BAG 1.5 GM in Premix Bag 1 BAG IVPB SCH (17:00)
[2022-02-05] MEDS: Vancomycin HCl 1.25 GM in Sodium Chloride 0.9% 250 ML 250 ML IVPB SCH (17:35)
[2022-02-05] MEDS: Tamsulosin HCl 0.4 MG CAP PO SCH (20:28)
[2022-02-05] MEDS: Losartan 25 MG TAB PO SCH (20:28)
[2022-02-05] MEDS: Aspirin 81 mg Enteric Coated Tablet PO SCH (20:28)
[2022-02-05] MEDS: Atorvastatin Calcium 40 MG TAB PO SCH (20:29)
[2022-02-06] MEDS: Vancomycin HCl 1.25 GM in Sodium Chloride 0.9% 250 ML 250 ML IVPB SCH ×2 (04:55→18:19)
[2022-02-06 06:02] LABS: Anion Gap 14 mmol/L (10-20); BUN (Urea Nitrogen) 9 mg/dL (8.4-25.7); Calc. Creatinine Clearance 136 mL/min (70-130); Calcium 8.5 mg/dL (7.8-10.44); Carbon Dioxide 25 mmol/L (23-31); Chloride 106 mmol/L (98-107); Glucose 112 mg/dL (83-110); Potassium 3.5 mmol/L (3.5-5.1); Sodium 141 mmol/L (136-145)
[2022-02-06] MEDS: Furosemide 40 MG TAB PO SCH (08:29)
[2022-02-06] MEDS: Enoxaparin Sodium 40 MG/0.4 ML SYRINGE SC SCH (08:29)
[2022-02-06] MEDS: Metoprolol Tartrate 25 MG TAB PO SCH ×2 (08:29→20:41)
[2022-02-06] MEDS: Docusate 100 MG CAP PO PRN (08:29)
[2022-02-06] MEDS: Finasteride 5 MG TAB PO SCH (08:29)
[2022-02-06] MEDS: Gabapentin 300 MG CAP PO SCH ×2 (08:29→20:41)
[2022-02-06] MEDS: Cefepime 2 GM in Sodium Chloride 0.9% 100 ML IVPB SCH ×2 (12:18→23:14)
[2022-02-06 13:53] VITALS: BMI 38.0
[2022-02-06] MEDS: Losartan 25 MG TAB PO SCH (20:40)
[2022-02-06] MEDS: Atorvastatin Calcium 40 MG TAB PO SCH (20:41)
[2022-02-06] MEDS: Aspirin 81 mg Enteric Coated Tablet PO SCH (20:41)
[2022-02-06] MEDS: Tamsulosin HCl 0.4 MG CAP PO SCH (20:43)
[2022-02-07] MEDS: Vancomycin HCl 1.25 GM in Sodium Chloride 0.9% 250 ML 250 ML IVPB SCH (04:49)
[2022-02-07] MEDS: Metoprolol Tartrate 25 MG TAB PO SCH ×2 (08:37→20:47)
[2022-02-07] MEDS: Gabapentin 300 MG CAP PO SCH ×2 (08:37→20:45)
[2022-02-07] MEDS: Amlodipine 10 MG TAB PO SCH (08:38)
[2022-02-07] MEDS: Furosemide 40 MG TAB PO SCH (08:38)
[2022-02-07] MEDS: Enoxaparin Sodium 40 MG/0.4 ML SYRINGE SC SCH (08:38)
[2022-02-07] MEDS: Finasteride 5 MG TAB PO SCH (08:38)
[2022-02-07] MEDS: cefTRIAXone\\ROCEPHIN 2 GM in Sodium Chloride 0.9% 100 ML IVPB SCH (10:25)
[2022-02-07] MEDS: Aspirin 81 mg Enteric Coated Tablet PO SCH (20:44)
[2022-02-07] MEDS: Losartan 25 MG TAB PO SCH (20:44)
[2022-02-07] MEDS: Docusate 100 MG CAP PO PRN (20:45)
[2022-02-07] MEDS: Tamsulosin HCl 0.4 MG CAP PO SCH (20:47)
[2022-02-07] MEDS: Atorvastatin Calcium 40 MG TAB PO SCH (20:48)
[2022-02-08 08:05] VITALS: TEMP 97.6
[2022-02-08] MEDS: Gabapentin 300 MG CAP PO SCH (08:30)
[2022-02-08] MEDS: cefTRIAXone\\ROCEPHIN 2 GM in Sodium Chloride 0.9% 100 ML IVPB SCH (08:30)
[2022-02-08] MEDS: Metoprolol Tartrate 25 MG TAB PO SCH (08:30)
[2022-02-08] MEDS: Amlodipine 10 MG TAB PO SCH (08:31)
[2022-02-08] MEDS: Enoxaparin Sodium 40 MG/0.4 ML SYRINGE SC SCH (08:31)
[2022-02-08] MEDS: Polyethylene Glycol 3350 17 GM Packet PO PRN (08:32)
[2022-02-08] MEDS: Finasteride 5 MG TAB PO SCH (08:32)
[2022-02-08] MEDS: Furosemide 40 MG TAB PO SCH (08:32)
[2022-02-08 08:33] VITALS: BP 150/74
== END 2022-02-08 14:34 | disposition home health service (06) | DRG 872 ==
LOC: ERS 15:28 → T4-B 21:38
PROVIDERS: ADMIT Internal Medicine; ATTEND Hospitalist
DX: A41.9 Sepsis, unspecified organism (principal); I50.32 Chronic diastolic (congestive) heart failure; L03.116 Cellulitis of left lower limb; L03.115 Cellulitis of right lower limb; I48.11 Longstanding persistent atrial fibrillation; Z20.822 Contact with and (suspected) exposure to COVID-19; N40.0 Benign prostatic hyperplasia without lower urinary tract symptoms; I25.10 Atherosclerotic heart disease of native coronary artery without angina pectoris; I11.0 Hypertensive heart disease with heart failure; E11.9 Type 2 diabetes mellitus without complications; I87.8 Other specified disorders of veins; Z90.49 Acquired absence of other specified parts of digestive tract; Z95.1 Presence of aortocoronary bypass graft; Z82.49 Family history of ischemic heart disease and other diseases of the circulatory system; Z79.899 Other long term (current) drug therapy; Z79.82 Long term (current) use of aspirin
CPT/HCPCS: 36415; 36416; 70450; 71045; 80048; 80053; 80202; 81003; 81015; 83605; 83880; 85025; 85027; 87040; 87086; 87804; 93005; 96365; 96375; J0692; J0696; J1650; J3370; J3490; J7030; J7050; U0002

== ENCOUNTER 2022-04-12 09:39 | Outpatient (CLI) | payer MEDICARE | END 2022-04-12 09:40 | disposition home or self-care (01) | LOC: BICRAD 09:39 | PROVIDERS: ATTEND Internal Medicine | DX: R06.00 Dyspnea, unspecified (principal); E11.9 Type 2 diabetes mellitus without complications; R17 Unspecified jaundice; E78.5 Hyperlipidemia, unspecified; D64.9 Anemia, unspecified; Z79.899 Other long term (current) drug therapy | CPT/HCPCS: 71046; 80053; 80061; 82043; 82248; 82607; 82728; 82746; 83540; 83550; 83880; 84443 ==

== ENCOUNTER 2022-04-13 08:51 | Outpatient (CLI) | payer MEDICARE | END 2022-04-13 08:52 | disposition home or self-care (01) | LOC: ULT 08:51 | PROVIDERS: ATTEND Internal Medicine | DX: K74.60 Unspecified cirrhosis of liver (principal); R74.01 Elevation of levels of liver transaminase levels; Z90.49 Acquired absence of other specified parts of digestive tract; E11.9 Type 2 diabetes mellitus without complications | CPT/HCPCS: 36415; 76705; 80074; 82105; 83036; 85025; 85610; 85730 ==

== ENCOUNTER 2023-01-02 10:53 | Outpatient (CLI) | payer MEDICARE | END 2023-01-02 10:54 | disposition home or self-care (01) | LOC: BICRAD 10:53 | PROVIDERS: ATTEND Internal Medicine | DX: R06.00 Dyspnea, unspecified (principal); I50.9 Heart failure, unspecified | CPT/HCPCS: 71046 ==

== ENCOUNTER 2023-09-16 13:40 | Inpatient (IN) | payer MEDICARE ==
[~2023-09-16 13:40] MED LIST: Iopamidol-370 76% 500 ML MDV (1 ML CHARGE) ONE
[2023-09-16] MEDS ORDERED: Dexamethasone 10 MG/ML VIAL ONE (14:15)
[2023-09-16] MEDS ORDERED: Sodium Chloride 0.9% 100 ML ONE (14:16)
[2023-09-16] MEDS ORDERED: Azithromycin 500 MG VIAL ONE (14:16)
[2023-09-16] MEDS ORDERED: cefTRIAXone (ROCEPHIN) 2 GM VIAL ONE (14:16)
[2023-09-16] MEDS ORDERED: Magnesium 2 GM/50 ML BAG (IN WATER) ONE (14:23)
[2023-09-16 14:40] LABS: Actual Bicarbonate (HCO3a) 29.7 mEq/L (22-28); Analyzer IN Cardio ER; Base Excess (BEa) 4.8 mEq/L (-2.0 to +3.0); CO2 Tension 44.9 mmHg (35.0-45.0); Calcium, Ionized (arterial) 1.17 mmol/L (1.12-1.30); Carboxyhemoglobin (COHb) 1.5 gm% (0.0-3.0); Hematocrit-ABG 40 % (42.0-52.0); Hemoglobin (Hb) 13.6 g/dL (14.0-18.0); O2 Tension (PaO2), arterial 74.3 mmHg (> 60.0); Potassium - ABG Lab 3.56 mmol/L (3.70-5.30); pH, Arterial 7.438 (7.35-7.45)
[2023-09-16 14:40] LABS: #Monocytes 0.9 thou/uL (0.11-0.59); #Neutrophils 12.6 thou/uL (1.40-6.50); %Basophils 0.1 % (0.0-1.0); %Eosinophils 0.1 % (0.0-10.0); %Lymphocytes 4.5 % (21.0-51.0); %Monocytes 6.4 % (0.0-10.0); %Neutrophils 88.3 % (42.0-75.0); Hematocrit 40.1 % (42.0-52.0); Hemoglobin 13.6 g/dL (14.0-18.0); Mean Corpuscular HGB CONC 33.9 g/dL (32.0-36.0); Mean Corpuscular Hemoglobin 33.4 pg (27.0-31.0); Mean Corpuscular Volume 98.5 fl (78.0-98.0); Mean Platelet Volume 9.7 fL (7.4-10.4); Platelet Count 124 10x3/uL (130-400); RBC Distribution Width 14.6 % (11.5-14.5); Red Blood Cell (RBC) Count 4.07 mill/uL (4.70-6.10); White Blood Cell (WBC) Count 14.3 10x3/uL (4.8-10.8)
[2023-09-16 14:47] LABS: Puncture Site Right Radial
[2023-09-16 14:57] LABS: SARS-CoV-2 NAA Rapid Test Not Detected (NotDetected)
[2023-09-16 15:03] LABS: ALT (SGPT) 17 U/L (8-55); AST (SGOT) 31 U/L (5-34); Albumin 3.8 g/dL (3.4-4.8); Alkaline Phosphatase 117 U/L (40-110); Anion Gap 16 mmol/L (10-20); BUN (Urea Nitrogen) 13 mg/dL (8.4-25.7); Bilirubin, Total 3.4 mg/dL (0.2-1.2); Calc. Creatinine Clearance 0 mL/min (70-130); Calcium 9.3 mg/dL (7.8-10.44); Carbon Dioxide 29 mmol/L (23-31); Chloride 101 mmol/L (98-107); Estimated GFR 74; Globulin 3.7 g/dL (2.4-3.5); Glucose 116 mg/dL (83-110); Lipase 4 U/L (8-78); Potassium 4.3 mmol/L (3.5-5.1); Protein, Total 7.5 g/dL (5.8-8.1); Sodium 142 mmol/L (136-145)
[2023-09-16 15:06] LABS: Troponin I 0.041 ng/mL (< 0.028)
[2023-09-16] MEDS ORDERED: Acetaminophen 325 MG TAB ONE (17:35)
[2023-09-16 17:48] LABS: Lactic Acid 1.6 mmol/L (0.5-2.2)
[2023-09-16 18:28] LABS: Bacteria/HPF None Seen HPF (None Seen); Bilirubin Negative (Negative); Blood, Urine 2+ (Negative); CAUTI Indications for Culture Fever or rigors; Clarity Clear (Clear); Glucose, Urine (Dipstick) Normal (Negative); Ketone, Urine Negative (Negative); Leukocyte Negative Leu/uL (Negative); Nitrite Negative (Negative); Protein, Urine (Dipstick) Negative (Neg-Trace); RBC/HPF Greater than 50 HPF (0-3); Specific Gravity, Urine 1.012 (1.002-1.036); Squamous Epithelial 0-3 HPF (0-3); WBC/HPF 0-3 HPF (0-3); pH, Urine 7.5 (5.0-9.0)
[2023-09-16 18:29] LABS: Urine Culture Reflex No No
[2023-09-16] MEDS ORDERED: Acetaminophen 325 MG TAB PO PRN (18:36)
[2023-09-16] MEDS ORDERED: Dextrose 50% Abboject 50 ML SYRINGE SLOW IVP PRN (19:13)
[2023-09-16] MEDS ORDERED: Dextrose 5% in Water 1,000 ML IV PRN (19:13)
[2023-09-16] MEDS ORDERED: HumaLOG 300 UNITS/3 ML VIAL SC PRN ×2 (19:13)
[2023-09-16] MEDS ORDERED: Glucagon 1 MG/ML KIT IM PRN (19:13)
[2023-09-16 19:52] LABS: Troponin I 0.189 ng/mL (< 0.028)
[2023-09-16] MEDS ORDERED: Ipratropium/Albuterol 3 ML NEB NEB PRN (20:57)
[2023-09-16] MEDS ORDERED: Vancomycin 1 GM in Premix 1 BAG IVPB SCH (21:00)
[2023-09-16 21:48] VITALS: BMI 36.3
[2023-09-16] MEDS: Cefepime 2 GM in Sodium Chloride 0.9% 100 ML IVPB SCH (22:18)
[2023-09-16 22:55] LABS: Pleural Fluid, Glucose 114 mg/dL; Pleural Fluid, LDH 88 U/L (Not Available); Pleural Fluid, Protein 2.9 g/dL
[2023-09-16 22:59] LABS: Troponin I 0.289 ng/mL (< 0.028)
[2023-09-16] MEDS ORDERED: Vancomycin (BATCH) 2 GM in Premix 1 BAG IVPB SCH (23:00)
[2023-09-16 23:06] LABS: RBC Count-Automated (BF) 1627 /cu.mm; WBC/Nucleated-Auto (BF) 535 /cu.mm
[2023-09-16 23:07] LABS: BF Color Yellow; Body Fluid Source Thoracentesis Fluid; Clarity Hazy (Clear); Tube # EDTA
[2023-09-16 23:09] LABS: BF Segmented Neutrophils 3 %; Cell Count Non Hematic 17 %; Lymphocytes 80 %
[2023-09-17 05:20] LABS: Hematocrit 36.3 % (42.0-52.0); Hemoglobin 11.9 g/dL (14.0-18.0); Manual Diff?? YES; Mean Corpuscular HGB CONC 32.8 g/dL (32.0-36.0); Mean Corpuscular Hemoglobin 33.2 pg (27.0-31.0); Mean Corpuscular Volume 101.4 fl (78.0-98.0); Platelet Count 98 10x3/uL (130-400); RBC Distribution Width 14.7 % (11.5-14.5); Red Blood Cell (RBC) Count 3.58 mill/uL (4.70-6.10); White Blood Cell (WBC) Count 15.9 10x3/uL (4.8-10.8)
[2023-09-17 05:30] LABS: Delete Auto Diff?? YES
[2023-09-17 06:16] LABS: Band 23 % (5-11); CellaVision Operator ID lab.abc; Lymphocytes 3 % (21-51); Monocytes 3 % (0-10); Neutrophil 71 % (42-75); Platelet Adequacy Comment Platelets Decreased; Smudge Cells 7.8 %; Total Cell Count 103
[2023-09-17 07:13] LABS: Chloride 105 mmol/L (98-107); Potassium 3.8 mmol/L (3.5-5.1); Sodium 141 mmol/L (136-145)
[2023-09-17 07:14] LABS: Calcium 8.3 mg/dL (7.8-10.44); Glucose 178 mg/dL (83-110)
[2023-09-17 07:16] LABS: Anion Gap 14 mmol/L (10-20); Carbon Dioxide 26 mmol/L (23-31)
[2023-09-17 07:18] LABS: Calc. Creatinine Clearance 87 mL/min (70-130); Estimated GFR 76
[2023-09-17 07:19] LABS: BUN (Urea Nitrogen) 17 mg/dL (8.4-25.7)
[2023-09-17 07:37] LABS: Troponin I 0.312 ng/mL (< 0.028)
[2023-09-17] MEDS ORDERED: Furosemide 40 MG/4 ML VIAL SLOW IVP SCH (08:30)
[2023-09-17] MEDS: Pantoprazole 40 MG VIAL IVP SCH (08:42)
[2023-09-17] MEDS: Cefepime 2 GM in Sodium Chloride 0.9% 100 ML IVPB SCH ×2 (08:42→17:22)
[2023-09-17] MEDS ORDERED: Nystatin Powder 15 GM BOT TOP PRN (15:25)
[2023-09-17] MEDS ORDERED: Gabapentin 300 MG CAP PO SCH (15:30)
[2023-09-17] MEDS: Magnesium Oxide 400 MG TAB PO SCH (16:14)
[2023-09-17] MEDS: Tamsulosin HCl 0.4 MG CAP PO SCH (21:07)
[2023-09-17] MEDS: Gabapentin 300 MG CAP PO SCH (21:07)
[2023-09-17] MEDS: Atorvastatin Calcium 40 MG TAB PO SCH (21:08)
[2023-09-17] MEDS: CO Q-10 CAPSULE 100 MG PO SCH (21:08)
[2023-09-17] MEDS ORDERED: Vancomycin 1 GM in Premix 1 BAG IVPB SCH (22:00)
[2023-09-17] MEDS: Metoprolol Tartrate 25 MG TAB PO SCH (22:26)
[2023-09-17] MEDS: Isosorbide Mononitrate 20 MG TAB PO SCH (22:26)
[2023-09-18] MEDS: Cefepime 2 GM in Sodium Chloride 0.9% 100 ML IVPB SCH ×3 (01:02→17:21)
[2023-09-18 04:55] LABS: #Eosinphils 0.1 thou/uL (0.0-0.7); #Neutrophils 10.8 thou/uL (1.40-6.50); %Basophils 0.2 % (0.0-1.0); %Eosinophils 0.5 % (0.0-10.0); %Lymphocytes 9.4 % (21.0-51.0); %Monocytes 7.6 % (0.0-10.0); %Neutrophils 81.6 % (42.0-75.0); Hematocrit 36.4 % (42.0-52.0); Hemoglobin 11.7 g/dL (14.0-18.0); Mean Corpuscular HGB CONC 32.1 g/dL (32.0-36.0); Mean Corpuscular Hemoglobin 32.6 pg (27.0-31.0); Mean Corpuscular Volume 101.4 fl (78.0-98.0); Mean Platelet Volume 10.6 fL (7.4-10.4); Red Blood Cell (RBC) Count 3.59 mill/uL (4.70-6.10); White Blood Cell (WBC) Count 13.2 10x3/uL (4.8-10.8)
[2023-09-18 05:23] LABS: Anion Gap 11 mmol/L (10-20); BUN (Urea Nitrogen) 28 mg/dL (8.4-25.7); Calc. Creatinine Clearance 79 mL/min (70-130); Calcium 8.6 mg/dL (7.8-10.44); Carbon Dioxide 28 mmol/L (23-31); Chloride 104 mmol/L (98-107); Estimated GFR 67; Glucose 157 mg/dL (83-110); Potassium 3.7 mmol/L (3.5-5.1); Sodium 139 mmol/L (136-145)
[2023-09-18 05:32] LABS: Critical Call Chem Troponin I RESULT DECREASING
[2023-09-18 06:10] LABS: Platelet Count 104 10x3/uL (130-400)
[2023-09-18] MEDS: Dutasteride 0.5 MG CAP PO SCH (08:15)
[2023-09-18] MEDS: Cholecalciferol 1,000 UNITS (25 MCG) TAB PO SCH (08:15)
[2023-09-18] MEDS: Fish Oil 1,000 MG CAP PO SCH (08:15)
[2023-09-18] MEDS: CO Q-10 CAPSULE 100 MG PO SCH ×2 (08:15→20:35)
[2023-09-18] MEDS: Tamsulosin HCl 0.4 MG CAP PO SCH ×2 (08:16→20:35)
[2023-09-18] MEDS: Finasteride 5 MG TAB PO SCH (08:17)
[2023-09-18] MEDS: Gabapentin 300 MG CAP PO SCH ×2 (08:17→20:34)
[2023-09-18] MEDS: Multivit, Therapeutic 1 TAB PO SCH (08:17)
[2023-09-18] MEDS: Magnesium Oxide 400 MG TAB PO SCH ×2 (08:17→17:21)
[2023-09-18] MEDS: Pantoprazole 40 MG VIAL IVP SCH (08:18)
[2023-09-18] MEDS: Losartan 25 MG TAB PO SCH (08:18)
[2023-09-18] MEDS: Metoprolol Tartrate 25 MG TAB PO SCH ×2 (08:18→20:35)
[2023-09-18] MEDS: Isosorbide Mononitrate 20 MG TAB PO SCH ×2 (08:20→20:34)
[2023-09-18] MEDS: Vitamin E 400 UNITS CAP PO SCH (08:21)
[2023-09-18] MEDS ORDERED: [UNRECOGNIZED DRUG - OTHER] PO SCH (09:00)
[2023-09-18] MEDS ORDERED: BORAGE PO SCH (09:00)
[2023-09-18] MEDS ORDERED: FISH OIL PO SCH (09:00)
[2023-09-18] MEDS ORDERED: KELP PO SCH (09:00)
[2023-09-18] MEDS ORDERED: FLAX PO SCH (09:00)
[2023-09-18] MEDS: Atorvastatin Calcium 40 MG TAB PO SCH (20:35)
[2023-09-19] MEDS: Cefepime 2 GM in Sodium Chloride 0.9% 100 ML IVPB SCH ×3 (02:20→17:10)
[2023-09-19 05:49] LABS: #Eosinphils 0.2 thou/uL (0.0-0.7); #Monocytes 0.7 thou/uL (0.11-0.59); #Neutrophils 6.4 thou/uL (1.40-6.50); %Basophils 0.2 % (0.0-1.0); %Eosinophils 2.8 % (0.0-10.0); %Lymphocytes 12.7 % (21.0-51.0); %Monocytes 7.8 % (0.0-10.0); %Neutrophils 76.1 % (42.0-75.0); Hematocrit 31.5 % (42.0-52.0); Hemoglobin 10.7 g/dL (14.0-18.0); Mean Platelet Volume 11.2 fL (7.4-10.4); Platelet Count 120 10x3/uL (130-400); Red Blood Cell (RBC) Count 3.15 mill/uL (4.70-6.10); White Blood Cell (WBC) Count 8.4 10x3/uL (4.8-10.8)
[2023-09-19 06:50] LABS: Calcium 8.5 mg/dL (7.8-10.44); Chloride 105 mmol/L (98-107); Glucose 120 mg/dL (83-110); Potassium 3.8 mmol/L (3.5-5.1); Sodium 139 mmol/L (136-145)
[2023-09-19 06:52] LABS: Anion Gap 8 mmol/L (10-20); Carbon Dioxide 30 mmol/L (23-31)
[2023-09-19 06:54] LABS: Calc. Creatinine Clearance 93 mL/min (70-130); Estimated GFR 82
[2023-09-19 06:55] LABS: BUN (Urea Nitrogen) 32 mg/dL (8.4-25.7)
[2023-09-19] MEDS: Dutasteride 0.5 MG CAP PO SCH (08:13)
[2023-09-19] MEDS: Pantoprazole 40 MG VIAL IVP SCH (08:13)
[2023-09-19] MEDS: Fish Oil 1,000 MG CAP PO SCH (08:13)
[2023-09-19] MEDS: Metoprolol Tartrate 25 MG TAB PO SCH ×2 (08:14→20:33)
[2023-09-19] MEDS: Cholecalciferol 1,000 UNITS (25 MCG) TAB PO SCH (08:14)
[2023-09-19] MEDS: Isosorbide Mononitrate 20 MG TAB PO SCH ×2 (08:15→20:29)
[2023-09-19] MEDS: Vitamin E 400 UNITS CAP PO SCH (08:15)
[2023-09-19] MEDS: Tamsulosin HCl 0.4 MG CAP PO SCH ×2 (08:16→20:30)
[2023-09-19] MEDS: Multivit, Therapeutic 1 TAB PO SCH (08:16)
[2023-09-19] MEDS: Magnesium Oxide 400 MG TAB PO SCH ×2 (08:16→17:10)
[2023-09-19] MEDS: Finasteride 5 MG TAB PO SCH (08:16)
[2023-09-19] MEDS: Losartan 25 MG TAB PO SCH (08:16)
[2023-09-19] MEDS: CO Q-10 CAPSULE 100 MG PO SCH ×2 (08:17→20:29)
[2023-09-19] MEDS: Gabapentin 300 MG CAP PO SCH ×2 (08:17→20:29)
[2023-09-19] MEDS: Atorvastatin Calcium 40 MG TAB PO SCH (20:30)
[2023-09-20] MEDS: Cefepime 2 GM in Sodium Chloride 0.9% 100 ML IVPB SCH ×3 (02:05→16:48)
[2023-09-20 05:28] LABS: #Eosinphils 0.3 thou/uL (0.0-0.7); #Monocytes 0.7 thou/uL (0.11-0.59); #Neutrophils 4.4 thou/uL (1.40-6.50); %Basophils 0.4 % (0.0-1.0); %Eosinophils 4.2 % (0.0-10.0); %Lymphocytes 20.7 % (21.0-51.0); %Monocytes 9.6 % (0.0-10.0); %Neutrophils 64.5 % (42.0-75.0); Hematocrit 34.1 % (42.0-52.0); Hemoglobin 10.9 g/dL (14.0-18.0); Mean Corpuscular Hemoglobin 33.3 pg (27.0-31.0); Mean Corpuscular Volume 104.3 fl (78.0-98.0); Mean Platelet Volume 10.7 fL (7.4-10.4); Red Blood Cell (RBC) Count 3.27 mill/uL (4.70-6.10); White Blood Cell (WBC) Count 6.9 10x3/uL (4.8-10.8)
[2023-09-20 05:51] LABS: Anion Gap 5 mmol/L (10-20); BUN (Urea Nitrogen) 36 mg/dL (8.4-25.7); Calc. Creatinine Clearance 90 mL/min (70-130); Calcium 8.4 mg/dL (7.8-10.44); Carbon Dioxide 31 mmol/L (23-31); Chloride 106 mmol/L (98-107); Estimated GFR 78; Glucose 129 mg/dL (83-110); Potassium 4.2 mmol/L (3.5-5.1); Sodium 138 mmol/L (136-145)
[2023-09-20 06:04] LABS: Platelet Count 110 10x3/uL (130-400)
[2023-09-20] MEDS: Fish Oil 1,000 MG CAP PO SCH (08:23)
[2023-09-20] MEDS: Cholecalciferol 1,000 UNITS (25 MCG) TAB PO SCH (08:23)
[2023-09-20] MEDS: Dutasteride 0.5 MG CAP PO SCH (08:24)
[2023-09-20] MEDS: Finasteride 5 MG TAB PO SCH (08:24)
[2023-09-20] MEDS: Metoprolol Tartrate 25 MG TAB PO SCH ×2 (08:24→08:30)
[2023-09-20] MEDS: Multivit, Therapeutic 1 TAB PO SCH (08:24)
[2023-09-20] MEDS: Losartan 25 MG TAB PO SCH ×2 (08:24→08:32)
[2023-09-20] MEDS: Magnesium Oxide 400 MG TAB PO SCH ×2 (08:26→16:48)
[2023-09-20] MEDS: CO Q-10 CAPSULE 100 MG PO SCH ×2 (08:26→20:31)
[2023-09-20] MEDS: Gabapentin 300 MG CAP PO SCH ×2 (08:26→20:37)
[2023-09-20] MEDS: Tamsulosin HCl 0.4 MG CAP PO SCH ×2 (08:26→20:36)
[2023-09-20] MEDS: Pantoprazole 40 MG VIAL IVP SCH (08:27)
[2023-09-20] MEDS: Vitamin E 400 UNITS CAP PO SCH (08:27)
[2023-09-20] MEDS: Isosorbide Mononitrate 20 MG TAB PO SCH ×2 (09:05→20:38)
[2023-09-20 15:29] VITALS: BP 113/64
[2023-09-20] MEDS: Atorvastatin Calcium 40 MG TAB PO SCH (20:31)
[2023-09-21] MEDS: Metoprolol Tartrate 25 MG TAB PO SCH ×2 (01:23→07:52)
[2023-09-21] MEDS: Cefepime 2 GM in Sodium Chloride 0.9% 100 ML IVPB SCH ×2 (01:41→10:53)
[2023-09-21 03:57] LABS: #Eosinphils 0.2 thou/uL (0.0-0.7); #Monocytes 0.7 thou/uL (0.11-0.59); #Neutrophils 3.6 thou/uL (1.40-6.50); %Basophils 0.7 % (0.0-1.0); %Eosinophils 3.9 % (0.0-10.0); %Lymphocytes 25.3 % (21.0-51.0); %Monocytes 10.6 % (0.0-10.0); %Neutrophils 58.7 % (42.0-75.0); Hematocrit 34.1 % (42.0-52.0); Hemoglobin 11.1 g/dL (14.0-18.0); Mean Corpuscular HGB CONC 32.6 g/dL (32.0-36.0); Mean Corpuscular Volume 101.5 fl (78.0-98.0); Mean Platelet Volume 10.2 fL (7.4-10.4); Platelet Count 114 10x3/uL (130-400); RBC Distribution Width 14.6 % (11.5-14.5); Red Blood Cell (RBC) Count 3.36 mill/uL (4.70-6.10); White Blood Cell (WBC) Count 6.1 10x3/uL (4.8-10.8)
[2023-09-21 04:15] LABS: Anion Gap 8 mmol/L (10-20); BUN (Urea Nitrogen) 35 mg/dL (8.4-25.7); Calc. Creatinine Clearance 99 mL/min (70-130); Calcium 8.4 mg/dL (7.8-10.44); Carbon Dioxide 29 mmol/L (23-31); Chloride 106 mmol/L (98-107); Estimated GFR 85; Glucose 105 mg/dL (83-110); Potassium 4.1 mmol/L (3.5-5.1); Sodium 139 mmol/L (136-145)
[2023-09-21] MEDS: Dutasteride 0.5 MG CAP PO SCH (07:51)
[2023-09-21] MEDS: Vitamin E 400 UNITS CAP PO SCH (07:52)
[2023-09-21] MEDS: Isosorbide Mononitrate 20 MG TAB PO SCH (07:52)
[2023-09-21] MEDS: Finasteride 5 MG TAB PO SCH (07:52)
[2023-09-21] MEDS: Fish Oil 1,000 MG CAP PO SCH (07:52)
[2023-09-21] MEDS: Losartan 25 MG TAB PO SCH (07:52)
[2023-09-21] MEDS: CO Q-10 CAPSULE 100 MG PO SCH (07:53)
[2023-09-21] MEDS: Cholecalciferol 1,000 UNITS (25 MCG) TAB PO SCH (07:53)
[2023-09-21] MEDS: Multivit, Therapeutic 1 TAB PO SCH (07:53)
[2023-09-21] MEDS: Magnesium Oxide 400 MG TAB PO SCH (07:53)
[2023-09-21] MEDS: Gabapentin 300 MG CAP PO SCH (07:53)
[2023-09-21] MEDS: Tamsulosin HCl 0.4 MG CAP PO SCH (07:53)
[2023-09-21 12:32] VITALS: TEMP 97.4
== END 2023-09-21 17:20 | disposition home health service (06) | DRG 871 ==
LOC: ERS 13:40 → IMCU/EMU 18:35
PROVIDERS: ADMIT Hospitalist; ATTEND Hospitalist
DX: A41.50 Gram-negative sepsis, unspecified (principal); I50.33 Acute on chronic diastolic (congestive) heart failure; J18.9 Pneumonia, unspecified organism; J96.21 Acute and chronic respiratory failure with hypoxia; I5A Non-ischemic myocardial injury (non-traumatic); I25.810 Atherosclerosis of coronary artery bypass graft(s) without angina pectoris; J93.9 Pneumothorax, unspecified; Z66 Do not resuscitate; I48.91 Unspecified atrial fibrillation; R65.20 Severe sepsis without septic shock; I49.5 Sick sinus syndrome; E11.9 Type 2 diabetes mellitus without complications; N32.89 Other specified disorders of bladder; R33.9 Retention of urine, unspecified; R79.89 Other specified abnormal findings of blood chemistry; R31.9 Hematuria, unspecified; N21.0 Calculus in bladder; Z95.1 Presence of aortocoronary bypass graft; Z98.890 Other specified postprocedural states; Z11.52 Encounter for screening for COVID-19; Z82.49 Family history of ischemic heart disease and other diseases of the circulatory system
CPT/HCPCS: 36415; 36416; 51701; 71045; 71275; 74176; 80048; 80053; 81001; 82805; 82945; 83605; 83615; 83690; 83880; 84157; 84484; 85025; 85060; 85379; 87040; 87070; 87077; 87081; 87116; 87149; 87186; 87205; 87206; 87633; 88112; 88305; 89051; 93005; 93306; 94660; 96365; 96367; 96368; 96375; 97139; C9113; J0456; J0692; J0696; J1100; J1650; J1940; J3370; J3370-JW; J3475; J3490; Q9967

== ENCOUNTER 2023-10-22 08:34 | Inpatient (IN) | payer MEDICARE ==
[2023-10-22 09:13] LABS: #Eosinphils 0.1 thou/uL (0.0-0.7); #Monocytes 0.5 thou/uL (0.11-0.59); #Neutrophils 7.1 thou/uL (1.40-6.50); %Basophils 0.2 % (0.0-1.0); %Eosinophils 0.5 % (0.0-10.0); %Lymphocytes 19.4 % (21.0-51.0); %Monocytes 4.8 % (0.0-10.0); %Neutrophils 74.9 % (42.0-75.0); Hematocrit 39.2 % (42.0-52.0); Hemoglobin 12.9 g/dL (14.0-18.0); Mean Corpuscular HGB CONC 32.9 g/dL (32.0-36.0); Mean Corpuscular Hemoglobin 33.1 pg (27.0-31.0); Mean Corpuscular Volume 100.5 fl (78.0-98.0); Mean Platelet Volume 10.2 fL (7.4-10.4); Platelet Count 128 10x3/uL (130-400); RBC Distribution Width 15.2 % (11.5-14.5); White Blood Cell (WBC) Count 9.5 10x3/uL (4.8-10.8)
[2023-10-22 09:32] LABS: ALT (SGPT) 14 U/L (8-55); AST (SGOT) 25 U/L (5-34); Albumin 3.5 g/dL (3.4-4.8); Alkaline Phosphatase 99 U/L (40-110); Anion Gap 14 mmol/L (10-20); BUN (Urea Nitrogen) 12 mg/dL (8.4-25.7); Bilirubin, Total 2.4 mg/dL (0.2-1.2); Calc. Creatinine Clearance 0 mL/min (70-130); Calcium 9.2 mg/dL (7.8-10.44); Carbon Dioxide 33 mmol/L (23-31); Chloride 100 mmol/L (98-107); Estimated GFR 85; Globulin 3.7 g/dL (2.4-3.5); Glucose 117 mg/dL (83-110); Potassium 3.5 mmol/L (3.5-5.1); Protein, Total 7.2 g/dL (5.8-8.1); Sodium 143 mmol/L (136-145)
[2023-10-22 09:37] LABS: INR-International Normal Ratio 1.2; PTT 29.8 sec (22.9-36.1); Prothrombin Time 15.1 sec (12.0-14.7)
[2023-10-22 10:24] LABS: Troponin I 0.026 ng/mL (< 0.028)
[2023-10-22] MEDS ORDERED: Acetaminophen 325 MG TAB ONE (11:21)
[2023-10-22] MEDS ORDERED: Sodium Chloride 0.9% 100 ML ONE (11:22)
[2023-10-22] MEDS ORDERED: Cefepime 2 GM VIAL ONE (11:22)
[2023-10-22] MEDS ORDERED: Vancomycin (BATCH) 1.5 GM in Premix 1 BAG IVPB SCH ×2 (11:30→15:45)
[2023-10-22 11:37] LABS: Actual Bicarbonate (HCO3a) 31.2 mEq/L (22-28); Analyzer IN Cardio ER; Base Excess (BEa) 5.2 mEq/L (-2.0 to +3.0); CO2 Tension 52.3 mmHg (35.0-45.0); Calcium, Ionized (arterial) 1.14 mmol/L (1.12-1.30); Carboxyhemoglobin (COHb) 0.8 gm% (0.0-3.0); Hematocrit-ABG 35 % (42.0-52.0); Hemoglobin (Hb) 11.8 g/dL (14.0-18.0); O2 Tension (PaO2), arterial 96.9 mmHg (> 60.0); pH, Arterial 7.393 (7.35-7.45)
[2023-10-22] MEDS ORDERED: Acetaminophen 325 MG TAB PO PRN ×2 (11:45→12:39)
[2023-10-22] MEDS ORDERED: Ondansetron PF 4 MG/2 ML Vial IVP PRN (11:45)
[2023-10-22] MEDS ORDERED: Ondansetron ODT 4 MG TAB SL PRN (11:45)
[2023-10-22 12:02] LABS: Lactic Acid 1.5 mmol/L (0.5-2.2)
[2023-10-22 12:25] LABS: SARS-CoV-2 NAA Rapid Test Not Detected (NotDetected)
[2023-10-22 12:36] LABS: Troponin I 0.218 ng/mL (< 0.028)
[2023-10-22] MEDS ORDERED: Ondansetron ODT 4 MG TAB PO PRN (12:39)
[2023-10-22] MEDS ORDERED: Calcium Carbonate 500 MG ChewTAB PO PRN (12:39)
[2023-10-22] MEDS ORDERED: Ipratropium/Albuterol 3 ML NEB NEB PRN (12:39)
[2023-10-22 12:47] LABS: Puncture Site RRA
[2023-10-22 12:48] LABS: ALV-art Gradient 550.725 mmHg (0-20)
[2023-10-22] MEDS ORDERED: Iopamidol-370 76% 500 ML MDV (1 ML CHARGE) ONE (13:28)
[2023-10-22] MEDS ORDERED: Aspirin 325 MG TAB PO SCH (13:45)
[2023-10-22] MEDS ORDERED: Furosemide 40 MG TAB PO SCH (14:00)
[2023-10-22] MEDS ORDERED: Isosorbide Mononitrate 20 MG TAB PO SCH (21:00)
[2023-10-22] MEDS ORDERED: Gabapentin 300 MG CAP PO SCH (22:00)
[2023-10-22 22:15] VITALS: BMI 36.3
[2023-10-22] MEDS: Famotidine 20 MG TAB PO SCH (22:23)
[2023-10-22] MEDS: Atorvastatin Calcium 40 MG TAB PO SCH (22:24)
[2023-10-22] MEDS: Gabapentin 300 MG CAP PO SCH (22:24)
[2023-10-22] MEDS: Sodium Chloride 0.9% 1,000 ML IV SCH (22:24)
[2023-10-22] MEDS: Aspirin 81 mg Enteric Coated Tablet PO SCH (22:24)
[2023-10-22] MEDS: Tamsulosin HCl 0.4 MG CAP PO SCH (22:24)
[2023-10-22] MEDS: Magnesium Oxide 400 MG TAB PO SCH (22:24)
[2023-10-22] MEDS: Metoprolol Tartrate 25 MG TAB PO SCH (22:25)
[2023-10-22 23:38] LABS: Critical Call Chem Troponin I NUR.SC14@2338; Troponin I 1.347 ng/mL (< 0.028)
[2023-10-23] MEDS ORDERED: Nitroglycerin 0.4 MG TAB (25 Tab Bottle) SL PRN (00:39)
[2023-10-23] MEDS ORDERED: Aspirin Chewable 81 MG TAB PO SCH (00:45)
[2023-10-23] MEDS ORDERED: Electrolyte Replacement Protocol 1 EACH FS SCH (00:45)
[2023-10-23] MEDS: Cefepime 1 GM in Sodium Chloride 0.9% 100 ML IVPB SCH ×2 (01:00→11:30)
[2023-10-23] MEDS: Vancomycin (BATCH) 1.25 GM in Premix 1 BAG IVPB SCH ×2 (05:48→16:20)
[2023-10-23 06:06] LABS: #Eosinphils 0.1 thou/uL (0.0-0.7); #Monocytes 0.6 thou/uL (0.11-0.59); #Neutrophils 7.5 thou/uL (1.40-6.50); %Basophils 0.2 % (0.0-1.0); %Eosinophils 0.5 % (0.0-10.0); %Monocytes 6.2 % (0.0-10.0); %Neutrophils 77.8 % (42.0-75.0); Hematocrit 33.8 % (42.0-52.0); Hemoglobin 10.8 g/dL (14.0-18.0); Mean Corpuscular Hemoglobin 32.2 pg (27.0-31.0); Mean Corpuscular Volume 100.9 fl (78.0-98.0); Mean Platelet Volume 10.4 fL (7.4-10.4); Platelet Count 110 10x3/uL (130-400); RBC Distribution Width 15.4 % (11.5-14.5); Red Blood Cell (RBC) Count 3.35 mill/uL (4.70-6.10); White Blood Cell (WBC) Count 9.7 10x3/uL (4.8-10.8)
[2023-10-23 06:36] LABS: Anion Gap 13 mmol/L (10-20); BUN (Urea Nitrogen) 17 mg/dL (8.4-25.7); Calc. Creatinine Clearance 98 mL/min (70-130); Calcium 8.6 mg/dL (7.8-10.44); Carbon Dioxide 29 mmol/L (23-31); Chloride 105 mmol/L (98-107); Estimated GFR 85; Glucose 109 mg/dL (83-110); Magnesium 2.3 mg/dL (1.6-2.6); Potassium 3.6 mmol/L (3.5-5.1); Sodium 143 mmol/L (136-145)
[2023-10-23] MEDS ORDERED: Dextrose 5% in Water 1,000 ML IV PRN (07:41)
[2023-10-23] MEDS ORDERED: HumaLOG 300 UNITS/3 ML VIAL SC PRN ×2 (07:41)
[2023-10-23] MEDS ORDERED: Dextrose 50% Abboject 50 ML SYRINGE SLOW IVP PRN (07:41)
[2023-10-23] MEDS ORDERED: Glucagon 1 MG/ML KIT IM PRN (07:41)
[2023-10-23] MEDS ORDERED: Isosorbide Mononitrate 20 MG TAB PO SCH (07:45)
[2023-10-23] MEDS ORDERED: Losartan 25 MG TAB PO SCH (09:00)
[2023-10-23] MEDS ORDERED: ASCORBATE CALCIUM PO SCH (09:00)
[2023-10-23] MEDS ORDERED: BIOFLAVONOID PO SCH (09:00)
[2023-10-23] MEDS: Sodium Chloride 0.9% 1,000 ML IV SCH (09:06)
[2023-10-23] MEDS ORDERED: Sodium Chloride 0.65% Nasal 44 ML BOT EA NARE PRN (09:23)
[2023-10-23] MEDS ORDERED: Loratadine 10 MG TAB PO PRN (09:23)
[2023-10-23] MEDS ORDERED: Artificial Tear Sol 15 ML BOT EA EYE PRN (09:23)
[2023-10-23] MEDS ORDERED: Benzocaine/Menthol 1 LOZ LOZ PO PRN (09:23)
[2023-10-23] MEDS ORDERED: Benzonatate 100 MG CAP PO PRN (09:23)
[2023-10-23] MEDS ORDERED: GUAIFENESIN SF SOLN 200 MG/10 ML UDCUP PO PRN (09:23)
[2023-10-23] MEDS ORDERED: Moisturizing Cream (Eucerin) 113 GM JAR TOP PRN (09:23)
[2023-10-23] MEDS ORDERED: Senokot S 8.6-50 MG TAB PO PRN (09:23)
[2023-10-23] MEDS ORDERED: Bisacodyl 5 MG TAB PO PRN (09:23)
[2023-10-23] MEDS: Cholecalciferol 1,000 UNITS (25 MCG) TAB PO SCH (09:31)
[2023-10-23] MEDS: Fish Oil 1,000 MG CAP PO SCH (09:32)
[2023-10-23] MEDS: Metoprolol Tartrate 25 MG TAB PO SCH ×2 (09:34→21:20)
[2023-10-23] MEDS: Famotidine 20 MG TAB PO SCH ×2 (09:34→21:20)
[2023-10-23] MEDS: Folic Acid 1 MG TAB PO SCH (09:34)
[2023-10-23] MEDS: Multivitamin W/ Minerals 1 TAB PO SCH (09:34)
[2023-10-23] MEDS: CO Q-10 CAPSULE 100 MG PO SCH ×2 (09:36→21:20)
[2023-10-23] MEDS: Magnesium Oxide 400 MG TAB PO SCH ×2 (09:36→21:20)
[2023-10-23] MEDS: Vitamin E 400 UNITS CAP PO SCH (09:36)
[2023-10-23] MEDS: Finasteride 5 MG TAB PO SCH (09:36)
[2023-10-23] MEDS: Furosemide 40 MG TAB PO SCH (09:36)
[2023-10-23] MEDS: Saccharomyces boulardii 250 MG CAP PO SCH (09:36)
[2023-10-23] MEDS: Ferrous Sulfate 325 MG TAB PO SCH ×2 (09:36→09:41)
[2023-10-23] MEDS: Enoxaparin 40 MG (0.4 mL) SYRINGE SC SCH (09:36)
[2023-10-23] MEDS: Gabapentin 300 MG CAP PO SCH ×3 (09:37→21:19)
[2023-10-23 10:09] LABS: Magnesium 2.1 mg/dL (1.6-2.6)
[2023-10-23] MEDS: Aspirin 81 mg Enteric Coated Tablet PO SCH (21:19)
[2023-10-23] MEDS: Atorvastatin Calcium 40 MG TAB PO SCH (21:19)
[2023-10-23] MEDS: Tamsulosin HCl 0.4 MG CAP PO SCH (21:20)
[2023-10-24] MEDS: Cefepime 2 GM in Sodium Chloride 0.9% 100 ML IVPB SCH ×2 (00:23→12:31)
[2023-10-24 07:02] LABS: Vancomycin, Trough 15.1 ug/mL
[2023-10-24 07:14] LABS: Troponin I 0.806 ng/mL (< 0.028)
[2023-10-24 07:29] LABS: Cardiac Risk 1.9 (Less than 4.5)
[2023-10-24 08:44] VITALS: TEMP 97.5
[2023-10-24] MEDS: CO Q-10 CAPSULE 100 MG PO SCH (09:09)
[2023-10-24] MEDS: Enoxaparin 40 MG (0.4 mL) SYRINGE SC SCH (09:09)
[2023-10-24] MEDS: Vitamin E 400 UNITS CAP PO SCH (09:09)
[2023-10-24] MEDS: Cholecalciferol 1,000 UNITS (25 MCG) TAB PO SCH (09:09)
[2023-10-24] MEDS: Fish Oil 1,000 MG CAP PO SCH (09:10)
[2023-10-24] MEDS: Gabapentin 300 MG CAP PO SCH (09:10)
[2023-10-24] MEDS: Magnesium Oxide 400 MG TAB PO SCH (09:11)
[2023-10-24] MEDS: Saccharomyces boulardii 250 MG CAP PO SCH (09:11)
[2023-10-24] MEDS: Folic Acid 1 MG TAB PO SCH (09:11)
[2023-10-24] MEDS: Famotidine 20 MG TAB PO SCH (09:11)
[2023-10-24] MEDS: Finasteride 5 MG TAB PO SCH (09:11)
[2023-10-24] MEDS: Metoprolol Tartrate 25 MG TAB PO SCH (09:12)
[2023-10-24] MEDS: Furosemide 40 MG TAB PO SCH (09:12)
[2023-10-24] MEDS: Multivitamin W/ Minerals 1 TAB PO SCH (09:30)
[2023-10-24] MEDS: Ferrous Sulfate 325 MG TAB PO SCH (10:52)
[2023-10-24] MEDS: Vancomycin (BATCH) 1.25 GM in Premix 1 BAG IVPB SCH (12:16)
[2023-10-24 13:16] VITALS: BP 120/66
== END 2023-10-24 14:30 | disposition home or self-care (01) | DRG 871 ==
LOC: ERS 08:34 → ERHOLD 11:29 → INTOOBSV 11:29 → 2SE 11:36 → OBSVTOIN 10-24 09:09
PROVIDERS: ADMIT Student in an Organized Health Care Education/Training Program; ATTEND Family Medicine
PROC: 4A033R1 Measurement of Arterial Saturation, Peripheral, Percutaneous Approach (ICD-10-PCS; principal; 2023-10-22)
PROC: 3E03329 Introduction of Other Anti-infective into Peripheral Vein, Percutaneous Approach (ICD-10-PCS; 2023-10-22)
DX: A41.9 Sepsis, unspecified organism (principal); I21.A1 Myocardial infarction type 2; J18.9 Pneumonia, unspecified organism; I50.43 Acute on chronic combined systolic (congestive) and diastolic (congestive) heart failure; J96.11 Chronic respiratory failure with hypoxia; Z66 Do not resuscitate; E11.9 Type 2 diabetes mellitus without complications; I49.5 Sick sinus syndrome; K74.60 Unspecified cirrhosis of liver; I48.91 Unspecified atrial fibrillation; N40.1 Benign prostatic hyperplasia with lower urinary tract symptoms; R33.8 Other retention of urine; I11.0 Hypertensive heart disease with heart failure; I25.10 Atherosclerotic heart disease of native coronary artery without angina pectoris; D69.6 Thrombocytopenia, unspecified; D50.9 Iron deficiency anemia, unspecified; E78.5 Hyperlipidemia, unspecified; E66.9 Obesity, unspecified; Z68.36 Body mass index [BMI] 36.0-36.9, adult; Z79.899 Other long term (current) drug therapy; Z98.890 Other specified postprocedural states; Z79.82 Long term (current) use of aspirin; Z95.0 Presence of cardiac pacemaker; Z90.49 Acquired absence of other specified parts of digestive tract; Z95.1 Presence of aortocoronary bypass graft; Z82.49 Family history of ischemic heart disease and other diseases of the circulatory system; Z11.52 Encounter for screening for COVID-19
CPT/HCPCS: 36415; 36416; 36600; 71045; 71275; 74177; 80048; 80053; 80061; 80202; 82805; 83605; 83735; 83880; 84145; 84484; 85025; 85610; 85730; 87040; 87081; 93005; 93010; 93798; 94760; 96372; 96376; G0378; J0692; J1650; J3370; J3490; J7050; Q9967

== ENCOUNTER 2023-11-22 18:11 | Inpatient (IN) | payer MEDICARE ==
[2023-11-22] MEDS ORDERED: Mag-Al 1200 mg/1200 mg/30 ML UDCUP ONE (19:53)
[2023-11-22 20:00] LABS: #Eosinphils 0.1 thou/uL (0.0-0.7); #Monocytes 0.6 thou/uL (0.11-0.59); #Neutrophils 3.3 thou/uL (1.40-6.50); %Basophils 0.7 % (0.0-1.0); %Lymphocytes 27.3 % (21.0-51.0); %Monocytes 10.4 % (0.0-10.0); %Neutrophils 59.4 % (42.0-75.0); Hematocrit 37.6 % (42.0-52.0); Hemoglobin 12.8 g/dL (14.0-18.0); Mean Corpuscular Hemoglobin 33.8 pg (27.0-31.0); Mean Corpuscular Volume 99.2 fl (78.0-98.0); Mean Platelet Volume 10.5 fL (7.4-10.4); Platelet Count 120 10x3/uL (130-400); RBC Distribution Width 14.7 % (11.5-14.5); Red Blood Cell (RBC) Count 3.79 mill/uL (4.70-6.10); White Blood Cell (WBC) Count 5.6 10x3/uL (4.8-10.8)
[2023-11-22 20:24] LABS: ALT (SGPT) 14 U/L (8-55); AST (SGOT) 26 U/L (5-34); Albumin 3.3 g/dL (3.4-4.8); Alkaline Phosphatase 76 U/L (40-110); Anion Gap 12 mmol/L (10-20); BUN (Urea Nitrogen) 12 mg/dL (8.4-25.7); Bilirubin, Total 2.7 mg/dL (0.2-1.2); Calc. Creatinine Clearance 0 mL/min (70-130); Calcium 9.1 mg/dL (7.8-10.44); Carbon Dioxide 26 mmol/L (23-31); Chloride 105 mmol/L (98-107); Estimated GFR 85; Globulin 3.3 g/dL (2.4-3.5); Glucose 138 mg/dL (83-110); Lipase 12 U/L (8-78); Potassium 3.6 mmol/L (3.5-5.1); Protein, Total 6.6 g/dL (5.8-8.1); Sodium 139 mmol/L (136-145)
[2023-11-22 20:28] LABS: Troponin I 0.065 ng/mL (< 0.028)
[2023-11-22 22:02] LABS: Bacteria/HPF 1+ HPF (None Seen); Bilirubin Negative (Negative); Blood, Urine 2+ (Negative); CAUTI Indications for Culture Pelvic or flank pain; Clarity Turbid (Clear); Glucose, Urine (Dipstick) Normal (Negative); Ketone, Urine Trace mg/dL (Negative); Leukocyte 500 Leu/uL (Negative); Nitrite Negative (Negative); Protein, Urine (Dipstick) Negative (Neg-Trace); RBC/HPF 21-50 HPF (0-3); Specific Gravity, Urine 1.014 (1.002-1.036); Squamous Epithelial 0-3 HPF (0-3); Urobilinogen Normal mg/dL (Less than 2); WBC/HPF Greater than 50 HPF (0-3)
[2023-11-22 22:03] LABS: Urine Culture Reflex Yes Yes
[2023-11-22] MEDS ORDERED: Morphine 4 MG/ML VIAL ONE (22:18)
[2023-11-22] MEDS ORDERED: Sodium Chloride 0.9% 100 ML ONE ×2 (22:18→22:57)
[2023-11-22] MEDS ORDERED: Furosemide 40 MG (4 mL) VIAL ONE (22:18)
[2023-11-22] MEDS ORDERED: Ondansetron PF 4 MG/2 ML Vial ONE (22:18)
[2023-11-22] MEDS ORDERED: cefTRIAXone (ROCEPHIN) 1 GM VIAL ONE (22:19)
[2023-11-22] MEDS ORDERED: Piperacillin/Tazobactam 3.375 GM VIAL ONE (22:57)
[2023-11-22] MEDS ORDERED: Ondansetron ODT 4 MG TAB SL PRN (23:15)
[2023-11-22] MEDS ORDERED: Ondansetron PF 4 MG/2 ML Vial IVP PRN (23:15)
[2023-11-22] MEDS: Lidocaine 2% Viscous 10 mL, Alum & Magn 30 mL SSW SCH (23:17)
[2023-11-23 00:25] LABS: Troponin I 0.069 ng/mL (< 0.028)
[2023-11-23] MEDS ORDERED: Dextrose 5% in Water 1,000 ML IV PRN (00:48)
[2023-11-23] MEDS ORDERED: Glucagon 1 MG/ML KIT IM PRN (00:48)
[2023-11-23] MEDS ORDERED: HumaLOG 300 UNITS/3 ML VIAL SC PRN (00:48)
[2023-11-23] MEDS ORDERED: Dextrose 50% Abboject 50 ML SYRINGE SLOW IVP PRN (00:48)
[2023-11-23] MEDS: Morphine 4 MG/ML VIAL SLOW IVP SCH (02:27)
[2023-11-23 03:04] LABS: #Eosinphils 0.2 thou/uL (0.0-0.7); #Monocytes 0.6 thou/uL (0.11-0.59); #Neutrophils 2.2 thou/uL (1.40-6.50); %Basophils 0.7 % (0.0-1.0); %Eosinophils 3.7 % (0.0-10.0); %Lymphocytes 31.9 % (21.0-51.0); %Monocytes 13.2 % (0.0-10.0); %Neutrophils 50.3 % (42.0-75.0); Hematocrit 33.4 % (42.0-52.0); Hemoglobin 11.5 g/dL (14.0-18.0); Mean Corpuscular HGB CONC 34.4 g/dL (32.0-36.0); Mean Corpuscular Hemoglobin 33.4 pg (27.0-31.0); Mean Corpuscular Volume 97.1 fl (78.0-98.0); Mean Platelet Volume 9.7 fL (7.4-10.4); Platelet Count 109 10x3/uL (130-400); RBC Distribution Width 14.8 % (11.5-14.5); Red Blood Cell (RBC) Count 3.44 mill/uL (4.70-6.10); White Blood Cell (WBC) Count 4.3 10x3/uL (4.8-10.8)
[2023-11-23 03:44] LABS: Anion Gap 10 mmol/L (10-20); BUN (Urea Nitrogen) 13 mg/dL (8.4-25.7); Calc. Creatinine Clearance 77 mL/min (70-130); Calcium 8.7 mg/dL (7.8-10.44); Carbon Dioxide 34 mmol/L (23-31); Chloride 102 mmol/L (98-107); Estimated GFR 76; Glucose 104 mg/dL (83-110); Potassium 3.7 mmol/L (3.5-5.1); Sodium 142 mmol/L (136-145)
[2023-11-23] MEDS: Furosemide 40 MG (4 mL) VIAL SLOW IVP SCH (05:52)
[2023-11-23] MEDS: cefTRIAXone\\ROCEPHIN 2 GM in Sodium Chloride 0.9% 100 ML IVPB SCH (05:54)
[2023-11-23] MEDS: Heparin 5,000 UNITS/ML VIAL SC SCH (09:35)
[2023-11-23] MEDS: Losartan 25 MG TAB PO SCH (11:54)
[2023-11-23] MEDS: Acetaminophen 325 MG TAB PO PRN (16:15)
[2023-11-23] MEDS: HumaLOG 300 UNITS/3 ML VIAL SC PRN (18:40)
[2023-11-23] MEDS ORDERED: Metoprolol Tartrate 25 MG TAB PO SCH (21:00)
[2023-11-23] MEDS ORDERED: Isosorbide Mononitrate 20 MG TAB PO SCH (21:00)
[2023-11-23] MEDS: Tamsulosin HCl 0.4 MG CAP PO SCH (23:09)
[2023-11-23] MEDS: Atorvastatin Calcium 40 MG TAB PO SCH (23:09)
[2023-11-24 04:27] LABS: #Eosinphils 0.3 thou/uL (0.0-0.7); #Monocytes 0.6 thou/uL (0.11-0.59); #Neutrophils 3.2 thou/uL (1.40-6.50); %Basophils 0.7 % (0.0-1.0); %Lymphocytes 27.8 % (21.0-51.0); %Monocytes 9.7 % (0.0-10.0); %Neutrophils 55.6 % (42.0-75.0); Hematocrit 39.6 % (42.0-52.0); Hemoglobin 12.8 g/dL (14.0-18.0); Mean Corpuscular HGB CONC 32.3 g/dL (32.0-36.0); Mean Corpuscular Hemoglobin 33.3 pg (27.0-31.0); Mean Corpuscular Volume 103.1 fl (78.0-98.0); Mean Platelet Volume 10.3 fL (7.4-10.4); Red Blood Cell (RBC) Count 3.84 mill/uL (4.70-6.10); White Blood Cell (WBC) Count 5.7 10x3/uL (4.8-10.8)
[2023-11-24 04:41] LABS: Platelet Count 120 10x3/uL (130-400)
[2023-11-24 05:20] LABS: Anion Gap 11 mmol/L (10-20); BUN (Urea Nitrogen) 13 mg/dL (8.4-25.7); Calc. Creatinine Clearance 78 mL/min (70-130); Calcium 9.3 mg/dL (7.8-10.44); Carbon Dioxide 30 mmol/L (23-31); Chloride 102 mmol/L (98-107); Estimated GFR 77; Glucose 93 mg/dL (83-110); Potassium 3.6 mmol/L (3.5-5.1); Sodium 139 mmol/L (136-145)
[2023-11-24] MEDS: Cosyntropin 250 MCG VIAL SLOW IVP SCH (06:29)
[2023-11-24] MEDS: Losartan 25 MG TAB PO SCH (08:49)
[2023-11-24] MEDS: Cholecalciferol 1,000 UNITS (25 MCG) TAB PO SCH (08:50)
[2023-11-24] MEDS: Finasteride 5 MG TAB PO SCH (08:50)
[2023-11-24] MEDS: Morphine 2 MG/ML VIAL SLOW IVP PRN (14:29)
[2023-11-24] MEDS ORDERED: Losartan 25 MG TAB PO SCH (21:00)
[2023-11-25 04:42] LABS: #Eosinphils 0.3 thou/uL (0.0-0.7); #Monocytes 0.5 thou/uL (0.11-0.59); #Neutrophils 2.8 thou/uL (1.40-6.50); %Basophils 0.4 % (0.0-1.0); %Eosinophils 5.2 % (0.0-10.0); %Lymphocytes 24.2 % (21.0-51.0); %Monocytes 10.9 % (0.0-10.0); %Neutrophils 58.9 % (42.0-75.0); Hematocrit 33.9 % (42.0-52.0); Mean Corpuscular HGB CONC 32.4 g/dL (32.0-36.0); Mean Corpuscular Hemoglobin 33.3 pg (27.0-31.0); Mean Corpuscular Volume 102.7 fl (78.0-98.0); Mean Platelet Volume 10.4 fL (7.4-10.4); Platelet Count 100 10x3/uL (130-400); RBC Distribution Width 14.7 % (11.5-14.5); White Blood Cell (WBC) Count 4.8 10x3/uL (4.8-10.8)
[2023-11-25 05:23] LABS: Chloride 102 mmol/L (98-107); Sodium 135 mmol/L (136-145)
[2023-11-25 07:04] LABS: Calcium 8.4 mg/dL (7.8-10.44)
[2023-11-25 07:05] LABS: Glucose 119 mg/dL (83-110)
[2023-11-25 07:08] LABS: Calc. Creatinine Clearance 91 mL/min (70-130); Estimated GFR 85
[2023-11-25 07:09] LABS: BUN (Urea Nitrogen) 13 mg/dL (8.4-25.7)
[2023-11-25 07:27] LABS: Carbon Dioxide 25 mmol/L (23-31)
[2023-11-25 07:39] LABS: Anion Gap 12 mmol/L (10-20)
[2023-11-26] MEDS ORDERED: PROPOFOL 20 ML ONE (08:09)
[2023-11-26] MEDS ORDERED: Midazolam HCl 2 mg/2 ml Vial ONE (08:56)
[2023-11-26] MEDS ORDERED: Ketamine In 0.9 % NaCl 50 MG/5 ML SYRINGE ONE (08:56)
[2023-11-26] MEDS ORDERED: Lidocaine 1% PF 5 ML VIAL ONE (09:02)
[2023-11-26] MEDS ORDERED: Glycopyrrolate 0.2 MG/ML 5 ML SYRINGE ONE (09:05)
[2023-11-26] MEDS: Isosorbide Mononitrate 20 MG TAB PO SCH ×2 (12:45→18:30)
[2023-11-26] MEDS: Metoprolol Tartrate 25 MG TAB PO SCH (22:09)
[2023-11-27 05:31] LABS: #Eosinphils 0.2 thou/uL (0.0-0.7); #Monocytes 0.5 thou/uL (0.11-0.59); #Neutrophils 2.1 thou/uL (1.40-6.50); %Basophils 0.9 % (0.0-1.0); %Lymphocytes 31.7 % (21.0-51.0); %Monocytes 12.8 % (0.0-10.0); %Neutrophils 49.6 % (42.0-75.0); Hematocrit 31.5 % (42.0-52.0); Hemoglobin 10.5 g/dL (14.0-18.0); Mean Corpuscular HGB CONC 33.3 g/dL (32.0-36.0); Mean Corpuscular Hemoglobin 33.4 pg (27.0-31.0); Mean Corpuscular Volume 100.3 fl (78.0-98.0); Platelet Count 108 10x3/uL (130-400); RBC Distribution Width 14.6 % (11.5-14.5); Red Blood Cell (RBC) Count 3.14 mill/uL (4.70-6.10); White Blood Cell (WBC) Count 4.2 10x3/uL (4.8-10.8)
[2023-11-27 06:08] LABS: Anion Gap 8 mmol/L (10-20); BUN (Urea Nitrogen) 11 mg/dL (8.4-25.7); Calc. Creatinine Clearance 111 mL/min (70-130); Calcium 8.7 mg/dL (7.8-10.44); Carbon Dioxide 36 mmol/L (23-31); Chloride 99 mmol/L (98-107); Estimated GFR 90; Glucose 95 mg/dL (83-110); Potassium 3.5 mmol/L (3.5-5.1); Sodium 139 mmol/L (136-145)
[2023-11-27] MEDS: Isosorbide Mononitrate 20 MG TAB PO SCH (08:50)
[2023-11-27] MEDS: Furosemide 40 MG TAB PO SCH (08:50)
[2023-11-27] MEDS ORDERED: Iopamidol-370 76% 500 ML MDV (1 ML CHARGE) ONE (14:05)
[2023-11-27] MEDS: Metoprolol Tartrate 25 MG TAB PO SCH (21:19)
[2023-11-28 06:24] LABS: #Eosinphils 0.2 thou/uL (0.0-0.7); #Monocytes 0.6 thou/uL (0.11-0.59); #Neutrophils 2.2 thou/uL (1.40-6.50); %Basophils 0.7 % (0.0-1.0); %Eosinophils 3.7 % (0.0-10.0); %Monocytes 12.9 % (0.0-10.0); %Neutrophils 50.5 % (42.0-75.0); Hematocrit 32.1 % (42.0-52.0); Hemoglobin 10.7 g/dL (14.0-18.0); Mean Corpuscular HGB CONC 33.3 g/dL (32.0-36.0); Mean Corpuscular Hemoglobin 33.1 pg (27.0-31.0); Mean Corpuscular Volume 99.4 fl (78.0-98.0); Mean Platelet Volume 10.8 fL (7.4-10.4); RBC Distribution Width 14.6 % (11.5-14.5); Red Blood Cell (RBC) Count 3.23 mill/uL (4.70-6.10); White Blood Cell (WBC) Count 4.3 10x3/uL (4.8-10.8)
[2023-11-28 06:54] LABS: BUN (Urea Nitrogen) 13 mg/dL (8.4-25.7); Calc. Creatinine Clearance 102 mL/min (70-130); Calcium 8.7 mg/dL (7.8-10.44); Estimated GFR 88; Glucose 114 mg/dL (83-110)
[2023-11-28 06:59] LABS: Platelet Count 94 10x3/uL (130-400)
[2023-11-28 07:11] LABS: Carbon Dioxide Greater than 37 mmol/L (23-31); Chloride 97 mmol/L (98-107); Potassium 3.4 mmol/L (3.5-5.1); Sodium 140 mmol/L (136-145)
[2023-11-29 15:06] VITALS: BMI 32.7
[2023-11-30] MEDS: Aspirin 81 mg Enteric Coated Tablet PO SCH (21:02)
[2023-11-30] MEDS: CO Q-10 CAPSULE 100 MG PO SCH (21:03)
[2023-11-30] MEDS: Magnesium Oxide 400 MG TAB PO SCH (22:37)
[2023-12-01 05:39] LABS: #Eosinphils 0.2 thou/uL (0.0-0.7); #Monocytes 0.6 thou/uL (0.11-0.59); #Neutrophils 2.7 thou/uL (1.40-6.50); %Basophils 0.8 % (0.0-1.0); %Eosinophils 3.5 % (0.0-10.0); %Lymphocytes 28.7 % (21.0-51.0); %Monocytes 11.3 % (0.0-10.0); %Neutrophils 55.3 % (42.0-75.0); Hematocrit 32.5 % (42.0-52.0); Mean Corpuscular HGB CONC 33.8 g/dL (32.0-36.0); Mean Corpuscular Hemoglobin 33.4 pg (27.0-31.0); Mean Corpuscular Volume 98.8 fl (78.0-98.0); Platelet Count 123 10x3/uL (130-400); RBC Distribution Width 14.5 % (11.5-14.5); Red Blood Cell (RBC) Count 3.29 mill/uL (4.70-6.10); White Blood Cell (WBC) Count 4.9 10x3/uL (4.8-10.8)
[2023-12-01 06:12] LABS: Anion Gap 9 mmol/L (10-20); BUN (Urea Nitrogen) 16 mg/dL (8.4-25.7); Calc. Creatinine Clearance 102 mL/min (70-130); Calcium 8.8 mg/dL (7.8-10.44); Carbon Dioxide 36 mmol/L (23-31); Chloride 100 mmol/L (98-107); Estimated GFR 89; Glucose 105 mg/dL (83-110); Potassium 3.7 mmol/L (3.5-5.1); Sodium 141 mmol/L (136-145)
[2023-12-01] MEDS: Vitamin E 400 UNITS CAP PO SCH (09:09)
[2023-12-01] MEDS: Multivit, Therapeutic 1 TAB PO SCH (09:10)
[2023-12-01] MEDS: Metoprolol Tartrate 25 MG TAB PO SCH ×2 (12:05→21:35)
[2023-12-03 15:59] VITALS: TEMP 97.7
[2023-12-03 17:31] VITALS: BP 106/54
== END 2023-12-03 15:58 | DRG 291 ==
LOC: ERS 18:11 → ERHOLD 23:00 → 2NO 11-23 01:02
PROVIDERS: ADMIT Internal Medicine; ATTEND Hospitalist
PROC: 0DB78ZX Excision of Stomach, Pylorus, Via Natural or Artificial Opening Endoscopic, Diagnostic (ICD-10-PCS; principal; 2023-11-26)
DX: I11.0 Hypertensive heart disease with heart failure (principal); I50.43 Acute on chronic combined systolic (congestive) and diastolic (congestive) heart failure; J18.9 Pneumonia, unspecified organism; J96.01 Acute respiratory failure with hypoxia; K55.1 Chronic vascular disorders of intestine; I77.4 Celiac artery compression syndrome; J93.9 Pneumothorax, unspecified; N39.0 Urinary tract infection, site not specified; K29.70 Gastritis, unspecified, without bleeding; Z66 Do not resuscitate; I48.91 Unspecified atrial fibrillation; E11.9 Type 2 diabetes mellitus without complications; N40.0 Benign prostatic hyperplasia without lower urinary tract symptoms; E78.5 Hyperlipidemia, unspecified; R62.7 Adult failure to thrive; K74.60 Unspecified cirrhosis of liver; D69.6 Thrombocytopenia, unspecified; K76.82 Hepatic encephalopathy; Z79.899 Other long term (current) drug therapy; R53.81 Other malaise; Z79.82 Long term (current) use of aspirin; Z95.1 Presence of aortocoronary bypass graft; Z98.890 Other specified postprocedural states; Z90.49 Acquired absence of other specified parts of digestive tract; Z82.49 Family history of ischemic heart disease and other diseases of the circulatory system; R10.13 Epigastric pain; I50.9 Heart failure, unspecified
CPT/HCPCS: 36415; 36416; 71045; 71046; 74174; 74177; 76705; 80048; 80053; 80400; 81001; 82105; 83605; 83690; 83880; 84439; 84443; 84484; 85025; 87040; 87086; 88305; 88342; 93005; 96374; 96375; 97139; J0696; J0834; J1644; J1815; J1940; J2250; J2270; J2272; J2405; J2543; J2704; J3490; Q9967

== ENCOUNTER 2023-12-15 17:55 | Outpatient (CLI) | payer MEDICARE | END 2023-12-15 17:56 | disposition home or self-care (01) | LOC: HS RAD 17:55 | PROVIDERS: ATTEND Physical Medicine & Rehabilitation | DX: I50.9 Heart failure, unspecified (principal) | CPT/HCPCS: 71045 ==